=== PATIENT | female | born 1955 | race Caucasian/White ===

== ENCOUNTER 2022-12-19 09:59 | Outpatient (AMB) | payer MEDICARE, BC, SELFPAY ==
--- NOTE | 2022-12-19 10:03 | A.OFFVIS_ITS ---
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 Patient states I have dizzy spells all the time, I had long covid in January 2020 which came with severe dizziness, nausea. Allergies azithromycin [From Zithromax] Allergy (Unknown, Verified 12/19/22 10:10) Unknown fluvastatin Allergy (Unknown, Verified 12/19/22 10:10) mouth sore pravastatin Allergy (Unknown, Verified 12/19/22 10:10) myalgia simvastatin Allergy (Unknown, Verified 12/19/22 10:10) face swelling lisinopril Allergy (Verified 12/19/22 10:10) Rash naproxen [From Naprosyn] Allergy (Verified 12/19/22 10:10) angiodema Penicillins Allergy (Verified 12/19/22 10:10) Rash sulfamethazine Allergy (Verified 12/19/22 10:10) Rash Medication List - Last Reconciled 12/19/22 by SAMIR Elmore amitriptyline 10 - 20 mg (1 - 2 x 10 mg) PO BEDTIME 30 days clopidogrel 75 mg PO DAILY clopidogrel (Plavix) 75 mg PO DAILY escitalopram oxalate 20 mg PO DAILY levothyroxine 75 mcg PO DAILY lisinopril 5 mg PO DAILY meloxicam 15 mg PO DAILY metformin 500 mg PO DAILY rimegepant (Nurtec ODT) 75 mg PO ONCE PRN 30 days rosuvastatin 40 mg PO DAILY HPI HPI Comments History of Present Illness Details Right-handed 67-yr-old female presents for new pt evaluation of dizziness w/ ? of migraine. Pt reports she developed severe dizziness and headaches in Jan 2020. She thought this was a vestibular neuritis, as she had had 2 bouts of this prior. She r ecalls that in mid-Jan, she had the Covid-19 vaccine. As this progressed, she continued to have severe dizziness, headaches, brain fog, and fatigue. She stopped being able to work. She was referred to vestibular PT in Feb 2020, with [facility], which was helpful. She continued to have these symptoms, and saw neurology in July 2020- work-up was non-diagnostic. 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 Since, she has had Covid-19 x's 2 since (May 2021 and last in Sep 2022). In Sep, she had fatigue, increased dizziness, headache. She did take Paxlovid for both of these infections. Currently, she can have dizziness almost daily. The dizziness is like a head fullness and like she is spinning. She can lose her balance or veer to the left. The dizziness is a/w nausea. She is having an occasional headache- can be mild to be really bad, a/w photophobia/phonophobia. She has had 2 cervical and ON injections about a year ago which has helped. She also has a frequent whole head pressure/fullness discomfort also a/w photo/phonophobia. She is seeing PT again- doing dry needling, which is helping. Current acute medication use/interventions: None Previous acute medication use: Scop patch- was helpful but caused blurry vision. Meclizine- ineffective. Current preventative medication use: None Previous preventative medication use: None Non-pharmacological interventions: Rest History of headache disorder? Prior to Jan 2020, she had an occasional headache or a sinus headache (would have 2-3 sinus infections per week). The bouts of vestibular neuritis lasted only about 1-2 weeks and self-resolved. History of musculoskeletal disorders or injury? Has arthritis History of concussion/head injury? Has had a few self-limited concussions History of mood disorder? None History of sleep disorder? Does not sleep well. Has KASSIDY, not using PAP- has not tolerated PAP- causes increased nasal secretions. History of respiratory disease? None. Can have PNA induced wheezing History of CV disease? TIA 2020 and 2021 (unsure of exact dates). History of coagulopathy? None History of endocrine or metabolic disease? Diabetes- last HgA1C < 7%, hypothyroidism History of seizure? None History of GI disorder? Had diarrhea- using fiber usually helps Family planning? None Family history of dizziness, migraine or other headache disorder? None [facility] Medical History (Updated 12/20/22 @ 21:24 by SAMIR Elmore) Sleep difficulties HTN (hypertension) HLD (hyperlipidemia) Diabetes Hypothyroid Arthritis TIA (transient ischemic attack) Surgical History History of bladder surgery H/O arthroscopy of right knee History of rotator cuff surgery H/O tubal ligation History of carpal tunnel release History of knee replacement Family History Father Interstitial pulmonary fibrosis Mother Hypothyroid Fibrocystic breast Pulmonary embolism Daughter Cervical cancer Maternal Grandmother Dementia Asthma Myocardial infarct Social History Alcohol intake: current Patient Tobacco Use Status: Never used Tobacco Review of Systems Const Details: See scanned ROS form Physical Exam Vital Signs: Last Vital Signs Pulse 76 12/19/22 10:08 BP 118/82 12/19/22 10:08 Pulse Ox 97 12/19/22 10:08 Oxygen Delivery Method Room Air 12/19/22 10:08 BMI result Body Mass Index 36.7 Const Orientation/consciousness: patient oriented x3 HEENT Other: No palpable scalp tenderness. Head: Yes normocephalic Resp Effort & Inspection: normal respiratory effort and able to speak in complete sentences Neuro Other: EOM- elicits dizziness. General: patient oriented x3 Cranial nerves: Yes CN's II-XII intact bilaterally Cognition (Neuro): normal cognition Gait exam (Neuro): Normal gait present Motor exam (neuro): 5/5 motor strength present throughout Deep tendon reflexes (DTR's): Right triceps reflex intensity grade: 2+, Left triceps reflex intensity grade: 2+, Rt Biceps (C5, C6): 2+, Left biceps reflex intensity grade: 2+, Right brachioradialis reflex intensity grade: 2+, Left brachioradialis reflex intensity grade: 2+, Right patellar reflex intensity grade: 1+ and Left patellar reflex intensity grade: 1+ Coordination: [id number] test normal Pupils: Normal pupillary reactivity/response: bilateral Psych Appearance: grossly normal Mental Status: mental status grossly normal Speech and movement: Normal speech and movement present Affect: normal affect Attitude: cooperative Thought process: Normal thought process present Assessment & Plan Assessment & Plan (1) Dizziness: Code(s): R42 - Dizziness and giddiness (2) Migraine without aura: Comment: ? vestibular migraine Code(s): G43.009 - Migraine without aura, not intractable, without status migrainosus (3) COVID-19 long hauler: Code(s): U09.9 - Post COVID-19 condition, unspecified (4) Cognitive dysfunction: Code(s): F09 - Unspecified mental disorder due to known physiological condition (5) Sleep difficulties: Comment: h/o KASSIDY- did not tolerate PAP tx. Pt worked many night-shift for mx years. Code(s): G47.9 - Sleep disorder, unspecified Plan Discussed that pt's constellation of s/s of dizziness, headache a/w photo/phonophobia, cognitive dysfunction which developed after Covid-19 infection, do raise concern for having a migraine or vestibular migraine component. Will request previous head imaging. For overall management: Discussed importance of good self-care, including but not limited to maintaining a healthy diet, adequate fluid intake, adequate sleep, and engaging in regular physical activity. Track headaches and dizziness. Continue vestibular PT exercises Future considerations- f/u sleep study, referral to OT for cognitive tx. For acute headache treatment: Discussed importance of taking acute medications at the first sign of headache/dizziness. Trial Nurtec ODT 75mg qd prn. Reviewed potential adverse effects of gepants, including but not limited to fatigue, nausea, dry mouth, constipation. Previous acute migraine medication trials: None other Acute migraine medication contraindications: All triptans d/t HTN, HLD dx For headache prevention medication: Trial Amitriptyline 10-20mg qhs- may help dizziness and headache. Previous migraine prevention medication trials: None Migraine prevention medication contraindications: Would avoid topiramate d/t risk for worsening cognitive s/s. Pt to follow-up in 3 months or sooner prn. Medications: New rimegepant (Nurtec ODT) 1 tab qd prn migraine. Max 1 tab per day 75 mg PO ONCE 30 days PRN 16 tabs 3RF migraine headache amitriptyline 10 - 20 mg (1 - 2 x 10 mg) PO BEDTIME 30 days 60 tabs 3RF Coding Level of Care Code New Pt Level 4 (51875) Diagnoses Dizziness R42 Migraine without aura G43.009 COVID-19 long hauler U09.9 Cognitive dysfunction F09 Sleep difficulties G47.9
[2022-12-19 10:08] VITALS: BP 118/82; PULSE 76; O2SAT 97; BMI 36.7
== END 2022-12-19 11:23 | disposition home or self-care (01) ==
PROVIDERS: PCP Internal Medicine; Visit Provider Nurse Practitioner Family
DX: R42 Dizziness and giddiness (principal); G43.009 Migraine without aura, not intractable, without status migrainosus; U09.9 Post COVID-19 condition, unspecified; R41.89 Other symptoms and signs involving cognitive functions and awareness; G47.9 Sleep disorder, unspecified
CPT/HCPCS: 99204

== ENCOUNTER → 2022-12-19 09:59 | Outpatient (BNVA) | payer MEDICARE, BC, SELFPAY | PROVIDERS: PCP Internal Medicine; Visit Provider Nurse Practitioner Family | DX: U09.9 Post COVID-19 condition, unspecified (principal); R42 Dizziness and giddiness; G43.009 Migraine without aura, not intractable, without status migrainosus; F09 Unspecified mental disorder due to known physiological condition; G47.9 Sleep disorder, unspecified | CPT/HCPCS: 99202 ==

== ENCOUNTER 2023-04-11 10:53 | Outpatient (AMB) | payer MEDICARE, BC, SELFPAY ==
--- NOTE | 2023-04-11 10:55 | MHC.OFFVIS ---
Intake Vital Signs 04/11/23 10:56 Height 5 ft 3 in Weight 214 lb BMI 37.9 BP 124/82 Blood Pressure Location Rt brachial Position Sitting Pulse 70 Pulse Source Pulse Oximeter Pulse Oximetry (%) 96 Oxygen Delivery Method Room Air Intake Visit Reasons: follow up-Conf Intake Note: Patient presents for follow up . Allergies azithromycin [From Zithromax] Allergy (Unknown, Verified 04/11/23 11:18) Unknown fluvastatin Allergy (Unknown, Verified 04/11/23 11:18) mouth sore pravastatin Allergy (Unknown, Verified 04/11/23 11:18) myalgia simvastatin Allergy (Unknown, Verified 04/11/23 11:18) face swelling lisinopril Allergy (Verified 04/11/23 11:18) Rash naproxen [From Naprosyn] Allergy (Verified 04/11/23 11:18) angiodema Penicillins Allergy (Verified 04/11/23 11:18) Rash sulfamethazine Allergy (Verified 04/11/23 11:18) Rash HPI HPI Comments History of Present Illness Details 67-yr-old female presents for f/u visit. Pt denies any significant interval medical changes. She has recently been caring for her 87 yo mother who recently had a fall and subdural bleed. Her mother does not usually live w/ her, and so has had some increased stress and mental exhaustion. Has had some headaches. Tried Nurtec 3-4 x's. The 1st time, it did not work initially. Since, it has been effective for a stronger migraine headache. Has has 3-4 severe migraine attacks since the last visit. She still has bouts of dizziness, brain fog a/w headache, photophobia, mild nausea. She has not tried Nurtec for these episodes. She still has brain fog, has difficulty concentrating, She has tried the Amitriptyline 10mg prn. It helps her to sleep. However, if she does not take it early enough, she will have have difficulty waking up until 9-10am. Usually goes to sleep by 2-3am and can sleep to 10am, at times may fall asleep sitting up downstairs and wakes up to go to the bathroom, and goes upstairs to bed. Baseline dizziness characteristics: The dizziness is like a head fullness and like she is spinning a/w nausea. She can lose her balance or veer to the left. Baseline headache characteristics: Mild-Severe, a/w photophobia/phonophobia. Also has a frequent whole head pressure/fullness discomfort also a/w photo/phonophobia. [facility]LY [facility] Medical History (Updated 12/20/22 @ 21:24 by SAMIR Elmore) Sleep difficulties HTN (hypertension) HLD (hyperlipidemia) Diabetes Hypothyroid Arthritis TIA (transient ischemic attack) Surgical History History of bladder surgery H/O arthroscopy of right knee History of rotator cuff surgery H/O tubal ligation History of carpal tunnel release History of knee replacement Family History Father Interstitial pulmonary fibrosis Mother Hypothyroid Fibrocystic breast Pulmonary embolism Daughter Cervical cancer Maternal Grandmother Dementia Asthma Myocardial infarct Social History Alcohol intake: current Patient Tobacco Use Status: Never used Tobacco Physical Exam Vital Signs: Last Vital Signs Pulse 70 04/11/23 10:56 BP 124/82 04/11/23 10:56 Pulse Ox 96 04/11/23 10:56 Oxygen Delivery Method Room Air 04/11/23 10:56 BMI result Body Mass Index 37.9 Const General: cooperative and no acute distress Orientation/consciousness: patient oriented x3 Resp Effort & Inspection: normal respiratory effort and able to speak in complete sentences Neuro General: patient oriented x3 Cranial nerves: Yes CN's II-XII intact bilaterally Cognition (Neuro): normal cognition Psych Appearance: grossly normal Mental Status: mental status grossly normal Speech and movement: Normal speech and movement present Affect: normal affect Attitude: cooperative Results Reviewed Results Reviewed: Labs 02/05/23 10:26 cholesterol 177 triglycerides 135 HDL cholesterol 75 LDL cholesterol 75 non HDL cholesterol 102 03/13/2023, VL Carotid Duplex Scan Bilat Summary: Right Side: 1-49% stenosis in the Internal Carotid Artery. Antegrade flow in the Vertebral Artery. Multiphasic flow is seen in the Subclavian Artery. Left Side: 1-49% stenosis in the Internal Carotid Artery. The velocities are slightly higher than previously. Antegrade flow in the Vertebral Artery. Multiphasic flow is seen in the Subclavian Artery. Comparison is made to the previous ultrasound study dated 03/02/22. 08/02/21, ?MRI Brain W/O Contrast COMPARISON: MRI brain, 02/24/2020. FINDINGS: BRAIN and EXTRA-AXIAL SPACES: On diffusion weighted imaging, there are no regions of restricted diffusion to indicate an acute or subacute infarct. There is no evidence of intracranial hemorrhage on susceptibility sensitive sequence. There is no mass effect, midline shift, or effacement of the basal cisterns. Major intracranial flow voids are present. Mild scattered foci of T2 prolongation are seen in the periventricular, deep, and subcortical white matter. Ventricles, cisterns, and sulci are normal in size and configuration, without hydrocephalus. No abnormal extra-axial fluid collections are seen. Meningeal surfaces are normal. The midline structures, including sella, corpus callosum, and craniocervical junction, are unremarkable. EXTRACRANIAL SOFT TISSUES: Orbits are unremarkable. Trace right mastoid effusion is seen. Nasopharyngeal contour and symmetric. Paranasal sinuses, orbits, and remaining extracranial soft tissues are unremarkable. BONES: Marrow signal is preserved. IMPRESSION: 1. No acute/subacute infarct, mass, hemorrhage, or other acute intracranial abnormality. 2. Mild T2/FLAIR hyperintense foci in the white matter, nonspecific but most likely reflecting chronic small vessel disease. 06/13/20, CT Angio Head, CT Angio Neck FINDINGS: CTA OF THE NECK: Arch: There is a three vessel aortic arch. There is mild atherosclerotic plaque of the aortic arch, but origins of the supra aortic vessels are patent. Right carotid system: Proximal common carotid artery is mildly blurred by motion, but is patent. Remainder of the common carotid and cervical internal carotid arteries are patent. There is calcified atherosclerotic plaque at the carotid bifurcation, resulting in mild proximal ICA stenosis (10%) by NASCET criteria. There is no dissection or aneurysm. Left carotid system: The common carotid and cervical internal carotid arteries are patent. There is partially calcified atherosclerotic plaque at the carotid bifurcation, resulting in moderate proximal ICA stenosis (50%) by NASCET criteria, similar to prior. There is no dissection or aneurysm. There is a [id number] vertebral artery system. Right vertebral: Origin is blurred by motion but patent. No significant stenosis. No evidence of dissection or aneurysm. Left vertebral: Origin is blurred by motion but patent. No significant stenosis. No evidence of dissection or aneurysm. Other: Soft tissues and bones: No evidence of lymphadenopathy or mass. The thyroid is unremarkable. Visualized lungs are blurred by motion artifact, with associated airspace opacities which may reflect atelectasis on this expiratory phase study. Multilevel degenerative changes of the spine are noted, without acute osseous abnormality. CTA OF THE HEAD: Anterior circulation: Bilateral intracranial ICAs demonstrate atherosclerotic calcification, without stenosis. Bilateral ANDRÉS and MCA branches are patent. There is no significant stenosis, proximal cutoff, aneurysm, or vascular malformation. Posterior circulation: Bilateral intracranial vertebral arteries demonstrate atherosclerotic calcification, with minimal narrowing. The basilar artery, and bilateral PICA, SCA, and OUTPATIENT PHYSICAL THERAPIST ASSISTANT branches are patent. The SCAs are duplicated on each side. There is no significant stenosis, proximal cutoff, aneurysm, or vascular malformation. Veins: Major dural venous sinuses are patent. Other: Soft tissues and bones: No midline shift or effacement of the basal cisterns. No space-occupying hemorrhage. No territorial loss of julien-white matter differentiation. Orbits are unremarkable. No significant opacification in the paranasal sinuses or mastoid air cells. IMPRESSION: 1. No proximal occlusion or other acute abnormality in the major arteries of the head and neck. 2. Similar appearance of the moderate left proximal cervical ICA stenosis (50% by NASCET criteria). 3. Additional mild stenoses as above, similar to prior. 03/23/20, MRI Cervical Spine W/O Contrast COMPARISON: Cervical spine MRI, 10/01/2018. FINDINGS: ALIGNMENT, VERTEBRAE, MARROW, AND DISCS: Alignment is stable with minimal retrolisthesis of C4 on C5. Vertebral body heights are preserved. There is moderate disc space narrowing at C4-5 and C5-6, similar to prior. Bone marrow signal is normal. Prior edema in the left C6-C7 facets has resolved. POSTERIOR FOSSA AND CORD: The visualized posterior fossa and cervicomedullary junction are normal. The cervical cord is normal in caliber and signal throughout. PARASPINAL TISSUES: Surrounding cervical soft tissues are normal. Flow voids are preserved in the dominant cervical vessels. DETAILED FINDINGS BY LEVEL: C2-C3: There is no significant disc bulge or canal stenosis. There is mild left neural foraminal stenosis due to facet arthropathy. The right neural foramen is patent. C3-C4: There is a tiny central protrusion without significant canal stenosis. The neural foramen are patent. C4-C5: There is broad-based disc osteophyte and uncovertebral spurring as well as posterior ligamentous buckling. This results in moderate canal stenosis with effacement of the surrounding CSF, though there is no cord compression. There is severe bilateral neural foraminal stenosis, unchanged. C5-C6: There is broad-based disc osteophyte causing mild canal stenosis without contact of the cord. Uncovertebral spurring results in severe right and mild to moderate left neural foraminal stenosis. C6-C7: There is no canal stenosis. There is facet spurring, greater on the left, resulting in mild to moderate left neural foraminal stenosis. C7-T1: There is no significant canal or neural foraminal stenosis. IMPRESSION: 1. Previously noted left facet edema at C6-7 has resolved. 2. Otherwise, multilevel degenerative changes are stable as described, most pronounced at C4-5 where there is moderate canal stenosis. Please see above. Assessment & Plan Assessment & Plan (1) Dizziness: Code(s): R42 - Dizziness and giddiness (2) Migraine without aura: Comment: ? vestibular migraine Code(s): G43.009 - Migraine without aura, not intractable, without status migrainosus (3) Cognitive dysfunction: Code(s): F09 - Unspecified mental disorder due to known physiological condition (4) Sleep difficulties: Comment: h/o KASSIDY- did not tolerate PAP tx. Pt worked many night-shift for mx years. Code(s): G47.9 - Sleep disorder, unspecified (5) COVID-19 long hauler: Code(s): U09.9 - Post COVID-19 condition, unspecified Plan Reviwed previous and recent head/neck imaging, results notable for: 03/13/2023, VL Carotid Duplex Scan Mega, Right Side: 1-49% stenosis in ICA. Antegrade flow in the Vertebral Artery. Multiphasic flow is seen in the Subclavian Artery. Left Side: 1-49% stenosis in ICA. The velocities are slightly higher than previously. Antegrade flow in the Vertebral Artery. Multiphasic flow is seen in the Subclavian Artery. Brain MRI w/o, 2021- Mild nonspecifc T2/FLAIR hyperintense foci in the white matter c/w chronic small vessel disease. CT Angio Head and Neck, 2020: Head: Bilateral intracranial ICAs demonstrate atherosclerotic calcification, without stenosis. Bilateral intracranial vertebral arteries demonstrate atherosclerotic calcification, with minimal narrowing. Neck: mild atherosclerotic plaque of the aortic arch; Right calcified atherosclerotic plaque at the carotid bifurcation, resulting in mild proximal ICA stenosis (10%) by NASCET criteria. Left partially calcified atherosclerotic plaque at the carotid bifurcation, resulting in moderate proximal ICA stenosis (50%) by NASCET criteria. Qhevjz-[id number] vertebral artery system C-spine MRI w/o, 2020: multilevel degenerative changes are stable as described, most pronounced at C4-5 where there is moderate canal stenosis. Reviewed Dr Craven's recent note, vascular, plan to continue conservative tx of Left carotid artery stenosis. Continue ASA, Clopidogrel, rosuvastatin. BP is normotensive. Lipids- WNL. ? For overall management: Continue to try to optimize good self-care, including but not limited to maintaining a healthy diet, adequate fluid intake, adequate sleep, and engaging in regular physical activity. Track headaches and dizziness. Continue vestibular PT exercises Future considerations- f/u sleep study, referral to OT for cognitive tx. ? For acute headache treatment: Discussed importance of taking acute medications at the first sign of headache/dizziness. Continue Nurtec ODT 75mg qd prn, may try for dizziness/brain/fog/headache attacks. Reviewed potential adverse effects of gepants, including but not limited to fatigue, nausea, dry mouth, constipation. Previous acute migraine medication trials: None other Acute migraine medication contraindications: All triptans d/t HTN, HLD dx ? For headache prevention medication: Continue Amitriptyline 10-20mg qhs (at least 8-9 hours beofre need to arise in the am)- may help dizziness and headache. Previous migraine prevention medication trials: None Migraine prevention medication contraindications: Would avoid topiramate d/t risk for worsening cognitive s/s. ? Pt to follow-up in 3 months or sooner prn. Coding Level of Care Code Est Pt Level 4 (81762) Diagnoses Dizziness R42 Migraine without aura G43.009 Cognitive dysfunction F09 Sleep difficulties G47.9 COVID-19 long hauler U09.9
[2023-04-11 10:56] VITALS: BP 124/82; PULSE 70; O2SAT 96; BMI 37.9
== END 2023-04-11 12:13 | disposition home or self-care (01) ==
PROVIDERS: PCP Internal Medicine; Visit Provider Nurse Practitioner Family
DX: R42 Dizziness and giddiness (principal); G43.009 Migraine without aura, not intractable, without status migrainosus; R41.89 Other symptoms and signs involving cognitive functions and awareness; G47.9 Sleep disorder, unspecified; U09.9 Post COVID-19 condition, unspecified
CPT/HCPCS: 99214

== ENCOUNTER → 2023-04-11 10:53 | Outpatient (BNVA) | payer MEDICARE, BC, SELFPAY | PROVIDERS: PCP Internal Medicine; Visit Provider Nurse Practitioner Family | DX: G43.009 Migraine without aura, not intractable, without status migrainosus (principal); R42 Dizziness and giddiness; F09 Unspecified mental disorder due to known physiological condition; G47.9 Sleep disorder, unspecified; U09.9 Post COVID-19 condition, unspecified | CPT/HCPCS: 99212 ==

== ENCOUNTER 2023-12-27 09:00 | Outpatient (AMB) | payer MEDICARE, BC, SELFPAY ==
[2023-12-27 09:02] VITALS: BP 148/90; BMI 38.1
--- NOTE | 2023-12-27 09:02 | A.OFFVIS_ITS ---
Vital Signs 12/27/23 09:02 Height 5 ft 3 in Weight 215 lb BMI 38.1 BP 148/90 H Blood Pressure Location Rt brachial Position Sitting Intake Visit Reasons: Follow up Intake Note: Patient presents for follow up Allergies azithromycin [From Zithromax] Allergy (Unknown, Verified 12/27/23 09:04) Unknown fluvastatin Allergy (Unknown, Verified 12/27/23 09:04) mouth sore pravastatin Allergy (Unknown, Verified 12/27/23 09:04) myalgia simvastatin Allergy (Unknown, Verified 12/27/23 09:04) face swelling lisinopril Allergy (Verified 12/27/23 09:04) Rash naproxen [From Naprosyn] Allergy (Verified 12/27/23 09:04) angiodema Penicillins Allergy (Verified 12/27/23 09:04) Rash sulfamethazine Allergy (Verified 12/27/23 09:04) Rash Medication List - Last Reconciled 01/07/24 by SAMIR Elmore amitriptyline 10 - 20 mg (1 - 2 x 10 mg) PO BEDTIME 30 days clopidogrel 75 mg PO DAILY clopidogrel (Plavix) 75 mg PO DAILY escitalopram oxalate 20 mg PO DAILY levothyroxine 75 mcg PO DAILY lisinopril 5 mg PO DAILY meloxicam 15 mg PO DAILY metformin 500 mg PO DAILY rimegepant (Nurtec ODT) 75 mg PO ONCE PRN 30 days rosuvastatin 40 mg PO DAILY HPI Comments Details: 68 year old female follow up for Migraines, She is just moved and is under a lot of stress, her 87 yo mother is wanting to come visit this weekend. She reports forgetting things and why she is here. She continues to have migraines but less frequency and intensities, She has a h/o sleep apnea, and Vestibular Neuritis. 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 Tried Nurtec, liked it as it was helping but unable to continue d/t cost. Migraines, 1 x week with photophobia, intermittent dizziness, eyes bother her, no vomiting but nausea. She continues to have tension like headaches x1 per week, and states are different from Migraines. She goes into a dark room, sits down they last about 20 min. Short term memory is worse, always feeling exhausted, mood is irritable today. Sleeps at 2am to 3am - gets up at 11am and that is her normal schedule. Labor day weekend Saturday, she had a headache and visual changes- saw fractured garay like obstructed vision and it lasted one hour. She went to ER, had stroke Protocol work up- ? normal. Discontinued her Lisinopril d/t hyperkalemia. She will follow up with PCP, her BP is 148/90 today. [facility] Medical History Sleep difficulties HTN (hypertension) HLD (hyperlipidemia) Diabetes Hypothyroid Arthritis TIA (transient ischemic attack) Surgical History History of bladder surgery H/O arthroscopy of right knee History of rotator cuff surgery H/O tubal ligation History of carpal tunnel release History of knee replacement Family History Father Interstitial pulmonary fibrosis Mother Hypothyroid Fibrocystic breast Pulmonary embolism Daughter Cervical cancer Maternal Grandmother Dementia Asthma Myocardial infarct Social History Alcohol intake: current Patient Tobacco Use Status: Never used Tobacco Review of Systems Const Reports as per HPI Physical Exam Vital Signs: Last Vital Signs BP 148/90 H 12/27/23 09:02 BMI result Body Mass Index 38.1 Const General: cooperative, comfortable and no acute distress Nutritional Appearance: overweight Orientation/consciousness: patient oriented x3 Limitations: no limitations HEENT Head: Yes normal to inspection Eyes General: appearance normal, both eyes and all related structures Visual Castillo: normal visual castillo by confrontation Pupils: Equal, round and reactive pupils present and Pupils normal by confrontation Resp Effort & Inspection: normal respiratory effort and able to speak in complete sentences Neuro General: patient oriented x3 Cranial nerves: Yes Equal, round and reactive pupils present Motor exam (neuro): 5/5 motor strength present throughout Assessment & Plan Assessment & Plan (1) Migraine without aura: Comment: ? vestibular migraine Code(s): G43.009 - Migraine without aura, not intractable, without status migrainosus Category: Medical Qualifiers: Intractability: intractable (2) Dizziness: Code(s): R42 - Dizziness and giddiness Category: Medical (3) Cognitive dysfunction: Code(s): F09 - Unspecified mental disorder due to known physiological condition Category: Medical (4) Sleep difficulties: Comment: h/o KASSIDY- did not tolerate PAP tx. Pt worked many night-shift for mx years. Code(s): G47.9 - Sleep disorder, unspecified Category: Medical (5) COVID-19 long hauler: Code(s): U09.9 - Post COVID-19 condition, unspecified Category: Medical Plan I was not able to find recent ER reports in [facility] portals. Will request. Previous and recent head/neck imaging, results notable for: 03/13/2023, VL Carotid Duplex Scan Mega, Right Side: 1-49% stenosis in ICA. Antegrade flow in the Vertebral Artery. Multiphasic flow is seen in the Subclavian Artery. Left Side: 1-49% stenosis in ICA. The velocities are slightly higher than previously. Antegrade flow in the Vertebral Artery. Multiphasic flow is seen in the Subclavian Artery. Brain MRI w/o, 2021- Mild nonspecifc T2/FLAIR hyperintense foci in the white matter c/w chronic small vessel disease. CT Angio Head and Neck, 2020: Head: Bilateral intracranial ICAs demonstrate atherosclerotic calcification, without stenosis. Bilateral intracranial vertebral arteries demonstrate atherosclerotic calcification, with minimal narrowing. Neck: mild atherosclerotic plaque of the aortic arch; Right calcified atherosclerotic plaque at the carotid bifurcation, resulting in mild proximal ICA stenosis (10%) by NASCET criteria. Left partially calcified atherosclerotic plaque at the carotid bifurcation, resulting in moderate proximal ICA stenosis (50%) by NASCET criteria. [id number]-swwp-[id number] vertebral artery system C-spine MRI w/o, 2020: multilevel degenerative changes are stable as described, most pronounced at C4-5 where there is moderate canal stenosis. Mar 2023, Dr Craven's recent note, vascular, plan to continue conservative tx of Left carotid artery stenosis. Continue ASA, Clopidogrel, rosuvastatin. Lipids- WNL. BP is elevate dtoday at 148/90. Per pt lisinopril d/c'd d/t hyperkalemia. Will start pt on Propranolol Er 60mg qhs for BP and migraine. ? For overall management: Continue to try to optimize good self-care, including but not limited to maintaining a healthy diet, adequate fluid intake, adequate sleep, and engaging in regular physical activity. Track headaches and dizziness. Continue vestibular PT exercises Future considerations- f/u sleep study, referral to OT for cognitive tx. ? For acute headache treatment: Discussed importance of taking acute medications at the first sign of headache/dizziness. Trial Fioricet 1cap q 4 hrs prn tension type headache, Max 2 doses per day. May hold Nurtec ODT 75mg qd d/t cost. Reviewed potential adverse effects of gepants, including but not limited to fatigue, nausea, dry mouth, constipation. Previous acute migraine medication trials: Nurtec- effective but cost-probitive. Acute migraine medication contraindications: All triptans d/t HTN, HLD dx. NSAIDs d/t concomittent Plavix tx. ? For headache prevention medication: Start Propranolol ER 60mg qhs- may help BP as well. Continue Amitriptyline 10-20mg qhs (at least 8-9 hours before need to arise in the am)- may help dizziness and headache. Previous migraine prevention medication trials: None Migraine prevention medication contraindications: Would avoid topiramate d/t risk for worsening cognitive s/s. ? Pt to follow-up in 3 months or sooner prn. Pt seen by Adeel LUZ in coordination w/ myself KIMBERLEY Elmore, I agree with the above documentation and plan. Coding Level of Care Code Est Pt Level 4 (39080) Diagnoses Migraine without aura G43.009 Intractability: intractable Dizziness R42 Cognitive dysfunction F09 Sleep difficulties G47.9 COVID-19 long hauler U09.9
== END 2023-12-27 10:16 | disposition home or self-care (01) ==
LOC: HO.HSMS 09:01
PROVIDERS: PCP Internal Medicine; Visit Provider Nurse Practitioner Family
DX: G43.009 Migraine without aura, not intractable, without status migrainosus (principal); R42 Dizziness and giddiness; R41.89 Other symptoms and signs involving cognitive functions and awareness; G47.9 Sleep disorder, unspecified; U09.9 Post COVID-19 condition, unspecified
CPT/HCPCS: 99214

== ENCOUNTER → 2023-12-27 09:00 | Outpatient (BNVA) | payer MEDICARE, BC, SELFPAY | PROVIDERS: PCP Internal Medicine; Visit Provider Nurse Practitioner Family | DX: G43.009 Migraine without aura, not intractable, without status migrainosus (principal); G47.33 Obstructive sleep apnea (adult) (pediatric); R42 Dizziness and giddiness; F09 Unspecified mental disorder due to known physiological condition; U09.9 Post COVID-19 condition, unspecified | CPT/HCPCS: 99212 ==

== ENCOUNTER 2024-06-24 10:35 | Outpatient (AMB) | payer MEDICARE, BC, SELFPAY ==
--- NOTE | 2024-06-24 10:43 | MHC.OFFVIS ---
Vital Signs 06/24/24 10:45 Height 5 ft 3 in Weight 219 lb BMI 38.8 BP 122/84 Pulse 78 Pulse Source Pulse Oximeter Pulse Oximetry (%) 97 Oxygen Delivery Method Room Air Intake Visit Reasons: 6m follow up Intake Note: Patient presents follow up for headaches and dizziness. Business Administration Teacher Required: No Accompanied by: Self / Same As Patient Allergies azithromycin [From Zithromax] Allergy (Unknown, Verified 06/24/24 10:45) Unknown fluvastatin Allergy (Unknown, Verified 06/24/24 10:45) mouth sore pravastatin Allergy (Unknown, Verified 06/24/24 10:45) myalgia simvastatin Allergy (Unknown, Verified 06/24/24 10:45) face swelling lisinopril Allergy (Verified 06/24/24 10:45) Rash naproxen [From Naprosyn] Allergy (Verified 06/24/24 10:45) angiodema Penicillins Allergy (Verified 06/24/24 10:45) Rash sulfamethazine Allergy (Verified 06/24/24 10:45) Rash Medication List - Last Reconciled 06/24/24 by SAMIR Elmore amitriptyline 10 - 20 mg (1 - 2 x 10 mg) PO BEDTIME 30 days [id number] 50-325-40 mg 1 cap PO Q4H PRN 30 days clopidogrel 75 mg PO DAILY clopidogrel (Plavix) 75 mg PO DAILY escitalopram oxalate 20 mg PO DAILY levothyroxine 75 mcg PO DAILY lisinopril 5 mg PO DAILY meloxicam 15 mg PO DAILY metformin 500 mg PO BIDWMEAL propranolol ER 60 mg PO BEDTIME 30 days rimegepant (Nurtec ODT) 75 mg PO ONCE PRN 30 days rosuvastatin 40 mg PO DAILY HPI Comments Details: 68 year old female follow up for Migraines, dizziness. She deneis any significant interval medical changes. She states her migraine and dizziness attacks have increased, which can last all day. The dizziness attacks do affect her balance. She tried propranolol for a couple of days- caused lightheadedness so she stopped it. She resumed vestibular tx, which is helping- Christal Morales PT at [facility]. She notes in the past she has had occipital injections by pain management at pain management in [place] which was helpful. She is having an almost daily migraine attack- sometimes mild and sometimes more severe. Migraine is a/w with bifrontal, eye discomfort, photophobia, phonophobia, intermittent dizziness, eyes bother her, no vomiting but nausea. Continues to have lapses in short term memory and word finding difficulties. Sleeps is stable- usual sleep cycle 2-3am - 11am. 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 [facility] Medical History Sleep difficulties HTN (hypertension) HLD (hyperlipidemia) Diabetes Hypothyroid Arthritis TIA (transient ischemic attack) Surgical History History of bladder surgery H/O arthroscopy of right knee History of rotator cuff surgery H/O tubal ligation History of carpal tunnel release History of knee replacement Family History Father Interstitial pulmonary fibrosis Mother Hypothyroid Fibrocystic breast Pulmonary embolism Daughter Cervical cancer Maternal Grandmother Dementia Asthma Myocardial infarct Social History Alcohol intake: current Patient Tobacco Use Status: Never used Tobacco Physical Exam Vital Signs: Last Vital Signs Pulse 78 06/24/24 10:45 BP 122/84 06/24/24 10:45 Pulse Ox 97 06/24/24 10:45 Oxygen Delivery Method Room Air 06/24/24 10:45 BMI result Body Mass Index 38.8 Const General: cooperative, comfortable and no acute distress Nutritional Appearance: overweight Orientation/consciousness: patient oriented x3 Limitations: no limitations HEENT Head: Yes normal to inspection Eyes General: appearance normal, both eyes and all related structures Pupils: Equal, round and reactive pupils present and Pupils normal by confrontation Resp Effort & Inspection: normal respiratory effort and able to speak in complete sentences Neuro Other: Mild forward head and shoulder posture General: patient oriented x3 Cranial nerves: Yes Equal, round and reactive pupils present Motor exam (neuro): 5/5 motor strength present throughout Assessment & Plan Assessment & Plan (1) Migraine without aura: Comment: ? vestibular migraine Code(s): G43.009 - Migraine without aura, not intractable, without status migrainosus Category: Medical Qualifiers: Intractability: not intractable Status migrainosus presence: without status migrainosus Qualified Code(s): G43.009 - Migraine without aura, not intractable, without status migrainosus (2) Dizziness: Code(s): R42 - Dizziness and giddiness Category: Medical (3) Cognitive dysfunction: Code(s): F09 - Unspecified mental disorder due to known physiological condition Category: Medical (4) Sleep difficulties: Comment: h/o KASSIDY- did not tolerate PAP tx. Pt worked many night-shift for mx years. Code(s): G47.9 - Sleep disorder, unspecified Category: Medical (5) COVID-19 long hauler: Code(s): U09.9 - Post COVID-19 condition, unspecified Category: Medical Plan For history of episode of acute left eye visual change with history of TIA x2: BP is normal today. Patient has discontinued propranolol due to lightheadedness. Patient is no longer taking lisinopril. Continue Clopidogrel, rosuvastatin. For overall management: Continue to try to optimize good self-care, including but not limited to maintaining a healthy diet, adequate fluid intake, adequate sleep, and engaging in regular physical activity. Track headaches and dizziness. Continue vestibular PT exercises Future considerations- f/u sleep study, referral to OT for cognitive tx. ? For acute headache treatment: Discussed importance of taking acute medications at the first sign of headache/dizziness. Fioricet 1cap q 4 hrs prn tension type headache, Max 2 doses per day. May continue to hold hold Nurtec ODT 75mg qd d/t cost. Reviewed potential adverse effects of gepants, including but not limited to fatigue, nausea, dry mouth, constipation. Previous acute migraine medication trials: Nurtec- effective but cost-probitive. Acute migraine medication contraindications: All triptans d/t HTN, HLD dx. NSAIDs d/t concomittent Plavix tx. ? For headache prevention medication: Discussed trying a CGRP MaB antagonist- however this also looks to be unaffordable with a co-pay of greater than 500 dollars per dose. Discussed Botox therapy, as has at times this can be more affordable than typical prescription medication. Also consider trial of Namenda, which could help her post COVID cognitive difficulties and migraine. However, patient would like to follow-up with [facility]-to retrial occipital region injection as that was previously helpful. Discontinue Propranolol ER 60mg qhs- may help BP as well. Continue Amitriptyline 20mg qhs (at least 8-9 hours before need to arise in the am)- may help dizziness and headache. Previous migraine prevention medication trials: Propranolol caused lightheadedness. Migraine prevention medication contraindications: Would avoid topiramate d/t risk for worsening cognitive s/s. Encourage patient to consider applying for [place] Medicaid to see if she would qualify, as if approve this may help her with her medication co-pay costs. ? Pt to follow-up in 6 months or sooner prn. Medications: Changed From amitriptyline 10 - 20 mg (1 - 2 x 10 mg) PO BEDTIME 30 days 60 tabs 3RF To amitriptyline 20 mg (2 x 10 mg) PO BEDTIME 90 days 180 tabs 1RF Discontinued rimegepant (Nurtec ODT) 1 tab qd prn migraine. Max 1 tab per day Discontinued Reason: Patient no longer taking 75 mg PO ONCE 30 days PRN 16 tabs 6RF migraine headache propranolol ER Discontinued Reason: Patient no longer taking 60 mg PO BEDTIME 30 days 30 caps 3RF Coding Level of Care Code Est Pt Level 4 (02242) Diagnoses Migraine without aura and without status migrainosus, not intractable G43.009 Intractability: not intractable Status migrainosus presence: without status migrainosus Dizziness R42 Cognitive dysfunction F09 Sleep difficulties G47.9 COVID-19 long hauler U09.9
[2024-06-24 10:45] VITALS: BP 122/84; PULSE 78; O2SAT 97; BMI 38.8
--- OUTSIDE RECORDS SUMMARY | 2024-06-24 11:56 | XMS_ITS | Encounter Summary ---
Author Organization [facility] Address [address] [address] Phone Care Team Providers Care Sail Finisher Hand Name Role Phone Anjel Leyva MD Primary Care Provider [phone] Encounter Details Date Type Department Care Team (Late st Contact Info) Description 2022 Documentation Only [facility] [address] [place] [address] Anjel Leyva MD [address] Social History Tobacco Use Types Packs/Day Years Used Date Smoking Tobacco: Never Assessed Comments Unknown Sex and Gender Information Value Date Recorded Sex Assigned at Not on file Legal Sex Female 3:28 PM EDT Gender Identity Not on file Sexual Orientation Not on file documented as of this encounter Plan of Treatment Upcoming Encounters Date Type Department Care Team (Late st Contact Info) Description 08/19/2024 1:45 PM EDT Office Visit [facility] [address] [place] [address] Rasheed Winston MD [address] [place] [address] [place] [address] documented as of this encounter Visit Diagnoses Not on filedocumented in this encounter Care Teams Sail Finisher Hand Relationship Specialty Start Date End Date Anjel Leyva MD [address] PCP - General Internal Medicine 11/13/22 documented as of this encounter
--- OUTSIDE RECORDS SUMMARY | 2024-06-24 11:56 | XMS_ITS | Clinical Summary ---
Author Organization [facility], Address [address] [place] [address] [place] [address] Phone Care Team Providers Care Mechanical Lead Name Role Phone Anjel Leyva MD Primary Care Provider [phone] Allergies Active Allergy Reactions Criticality Noted Date Comments Hydrochlorothiazide Rash Low 09/25/2022 Naproxen Swelling,Other (see comments) 06/30/2002 swelling Allergy entered as NAPROSYN Penicillins Other (see comments),Rash Low 06/30/2002 unkown rx to amoxicillin Pravastatin Rash Low 02/13/2023 Sulfadiazine Rash Low 02/13/2023 Tretinoin Swelling 02/13/2023 Medications amitriptyline (ELAVIL) 10 MG tablet TAKE 1 TO 2 TABLETS BY MOUTH EVERY DAY AT BEDTIME 3 Active clopidogrel (PLAVIX) 75 MG tablet TAKE 1 TABLET BY MOUTH EVERY DAY STOP ASPIRIN AFTER 7 DAYS 3 Active escitalopram (LEXAPRO) 20 MG tablet Take 20 mg by mouth 1 (one) time each day 3 Active levothyroxine (SYNTHROID, LEVOTHROID) 75 MCG tablet Take 75 mcg by mouth 1 (one) time each day 3 Active metFORMIN (GLUCOPHAGE) 500 MG tablet Take 1,000 mg by mouth in the morning and 1,000 mg in the evening. 3 Active mometasone (ELOCON) 0.1 % cream APPLY TOPICALLY TO AFFECTED AREAS ON LEGS TWICE A DAY FOR TWO WEEKS, BREAK 1 WEEK AND REPEAT NEEDED 3 Active Nurtec 75 MG tablet dispersible TAKE 1 TABLET BY MOUTH EVERY DAY NEEDED FOR MIGRAINE HEADACHE (MAX 1 TABLET/DAY) 3 Active Active Problems Problem Noted Date Diagnosed Date Hypercalcemia 08/21/2023 Diabetes mellitus 02/13/2023 02/13/2023 Hypertensive disorder 02/13/2023 02/13/2023 Hyperkalemia 02/13/2023 Chronic kidney disease, stage 2 (mild) 3 Resolved Problems Problem Noted Date Diagnosed Date Resolved Date Stage 3a chronic kidney disease 02/13/2023 02/13/2023 Social History Tobacco Use Types Packs/Day Years Used Date Smoking Tobacco: Never Assessed Comments Unknown Sex and Gender Information Value Date Recorded Sex Assigned at Not on file Legal Sex Female 3:28 PM EDT Gender Identity Not on file Sexual Orientation Not on file Last Filed Vital Signs Vital Sign Reading Time Taken Comments Blood Pressure 128/82 08/21/2023 3:55 PM EDT Pulse - - Temperature - - Respiratory Rate - - Oxygen Saturation - - Inhaled Oxygen Concentration - - Weight 95.7 kg (211 lb) 02/13/2023 1:35 PM EST Height - - Body Mass Index - - Plan of Treatment Upcoming Encounters Date Type Department Care Team (Late st Contact Info) Description 08/19/2024 1:45 PM EDT Office Visit [facility] [address] [place] [id number] Rasheed Winston MD [address] [place] [id number] Health Maintenance Due Date Last Done Comments Breast Cancer Screening 1955 Colorectal Cancer Screening: Annual FOBT 2005 Colorectal Cancer Screening: Colonoscopy 2005 Colorectal Cancer Screening: Sigmoidoscopy 2005 Pneumococcal Vaccine: 50+ Ye ars (2 of 2 - PPSV23) 04/04/2022 02/07/2022 Diabetes: Hemoglobin A1C 11/26/2022 Diabetes: Ophthalmology Exam 11/26/2022 Diabetes: Pedal Pulse Checked 11/26/2022 Diabetes: Sensory Foot Exam 11/26/2022 Diabetes: Visual Foot Exam 11/26/2022 Influenza Vaccine (Season Ended) 2024 Hepatitis B Vaccine Aged Out No longe r eligible based on patient's age to complete this topic Insurance Medicare [facility] Care Teams Mechanical Lead Relationship Specialty Start Date End Date Ajnel Leyva MD [facility] [address] [place] [address] PCP - General Internal Medicine 11/13/22
== END 2024-06-24 11:40 | disposition home or self-care (01) ==
LOC: HO.HSMS 10:35
PROVIDERS: PCP Internal Medicine; Visit Provider Nurse Practitioner Family
DX: G43.009 Migraine without aura, not intractable, without status migrainosus (principal); R42 Dizziness and giddiness; R41.89 Other symptoms and signs involving cognitive functions and awareness; G47.9 Sleep disorder, unspecified; U09.9 Post COVID-19 condition, unspecified
CPT/HCPCS: 99214

== ENCOUNTER → 2024-06-24 10:35 | Outpatient (BNVA) | payer MEDICARE, BC, SELFPAY | PROVIDERS: PCP Internal Medicine; Visit Provider Nurse Practitioner Family | DX: G43.009 Migraine without aura, not intractable, without status migrainosus (principal); R42 Dizziness and giddiness; G47.9 Sleep disorder, unspecified; U09.9 Post COVID-19 condition, unspecified; F09 Unspecified mental disorder due to known physiological condition | CPT/HCPCS: 99212 ==

== ENCOUNTER 2024-12-23 11:29 | Outpatient (AMB) | payer MEDICARE, BC, SELFPAY ==
[2024-12-23 11:31] VITALS: BP 118/70; PULSE 74; O2SAT 93; BMI 39.1
--- NOTE | 2024-12-23 11:31 | A.OFFVIS_ITS ---
Vital Signs 12/23/24 11:31 Height 5 ft 3 in Weight 221 lb BMI 39.1 BP 118/70 Blood Pressure Location Lt brachial Position Sitting Pulse 74 Pulse Source Pulse Oximeter Pulse Oximetry (%) 93 Oxygen Delivery Method Room Air Intake Visit Reasons: 6m follow up Intake Note: Patient presents follow up for headaches and dizziness. Leather Cutter Required: No Accompanied by: Self / Same As Patient Allergies azithromycin (From Zithromax) Allergy (Unknown, Verified 12/23/24 11:34) Unknown fluvastatin Allergy (Unknown, Verified 12/23/24 11:34) mouth sore pravastatin Allergy (Unknown, Verified 12/23/24 11:34) myalgia simvastatin Allergy (Unknown, Verified 12/23/24 11:34) face swelling lisinopril Allergy (Verified 12/23/24 11:34) Rash naproxen (From Naprosyn) Allergy (Verified 12/23/24 11:34) angiodema Penicillins Allergy (Verified 12/23/24 11:34) Rash sulfamethazine Allergy (Verified 12/23/24 11:34) Rash Medication List - Last Reconciled 12/23/24 by SAMIR Elmore acetaminophen ER (Tylenol Arthritis Pain) 650 mg PO Q12H amitriptyline 20 mg (2 x 10 mg) PO BEDTIME 90 days fmfnnubznh-ycxjuamjhlugv-hqxb 50-325-40 mg 1 cap PO Q4H PRN 30 days clopidogrel 75 mg PO DAILY clopidogrel (Plavix) 75 mg PO DAILY escitalopram oxalate 20 mg PO DAILY levothyroxine 75 mcg PO DAILY metformin 500 mg PO BIDWMEAL rosuvastatin 40 mg orally 3 times a week; HPI Comments Details: 69 year old female follow up for migraines, dizziness in setting of long COVID infection in 2019. She denies any significant interval medical changes. She states her migraine and dizziness attacks are intermittent. Having 3-4 mild migraine days per week, and 2-3 more severe migraine attacks per week. For migraine: Migraine is a/w with bifrontal, eye discomfort, photophobia, phonophobia, intermittent dizziness, eyes bother her, no vomiting but nausea. She notes in the past she has had occipital injections by pain management at pain management in [place] which was helpful. She still intermittent bouts of dizziness, which affects her balance prevents her from being able to drive. Her PCP gave her Meclizine, which he has taken few times. She states the meclizine makes her fall asleep and typically wakes up feeling better. The dizziness attacks do affect her balance. She has done vestibular tx, which has helped in the past- Christ[facility] Morales [facility]. Continues to have lapses in short term memory and word finding difficulties. Sleeps is stable- usual sleep cycle 2-3am - 11am. 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 [facility] Medical History Sleep difficulties HTN (hypertension) HLD (hyperlipidemia) Diabetes Hypothyroid Arthritis TIA (transient ischemic attack) Surgical History History of bladder surgery H/O arthroscopy of right knee History of rotator cuff surgery H/O tubal ligation History of carpal tunnel release History of knee replacement Family History Father Interstitial pulmonary fibrosis Mother Hypothyroid Fibrocystic breast Pulmonary embolism Daughter Cervical cancer Maternal Grandmother Dementia Asthma Myocardial infarct Social History Alcohol intake: current Patient Tobacco Use Status: Never used Tobacco Physical Exam Vital Signs: Last Vital Signs Pulse 74 12/23/24 11:31 BP 118/70 12/23/24 11:31 Pulse Ox 93 12/23/24 11:31 Oxygen Delivery Method Room Air 12/23/24 11:31 BMI result Body Mass Index 39.1 Const General: cooperative, comfortable and no acute distress Nutritional Appearance: overweight Orientation/consciousness: patient oriented x3 Limitations: no limitations HEENT Head: Yes normal to inspection Eyes General: appearance normal, both eyes and all related structures Pupils: Equal, round and reactive pupils present and Pupils normal by confrontation Resp Effort & Inspection: normal respiratory effort and able to speak in complete sentences Neuro Other: Mild forward head and shoulder posture General: patient oriented x3 Cranial nerves: Yes Equal, round and reactive pupils present Motor exam (neuro): 5/5 motor strength present throughout Assessment & Plan Assessment & Plan (1) Migraine without aura: Comment: ? vestibular migraine Code(s): G43.009 - Migraine without aura, not intractable, without status migrainosus Category: Medical Qualifiers: Intractability: not intractable Status migrainosus presence: without status migrainosus Qualified Code(s): G43.009 - Migraine without aura, not intractable, without status migrainosus (2) Dizziness: Code(s): R42 - Dizziness and giddiness Category: Medical (3) Cognitive dysfunction: Code(s): F09 - Unspecified mental disorder due to known physiological condition Category: Medical (4) Sleep difficulties: Comment: h/o KASSIDY- did not tolerate PAP tx. Pt worked many night-shift for mx years. Code(s): G47.9 - Sleep disorder, unspecified Category: Medical (5) COVID-19 long hauler: Code(s): U09.9 - Post COVID-19 condition, unspecified Category: Medical Plan For history of episode of acute left eye visual change with history of TIA x2: BP is normal today. Continue Clopidogrel, rosuvastatin. Previous treatments: Propranolol caused lightheadedness. Lisinopril: Patient no longer taking. For overall management: Continue to try to optimize good self-care, including but not limited to maintaining a healthy diet, adequate fluid intake, adequate sleep, and engaging in regular physical activity. Track headaches and dizziness. Continue vestibular PT exercises as needed We will refer patient to [facility]'s Long COVID clinic Future considerations- f/u sleep study, referral to OT for cognitive tx. ? For acute headache treatment: It is important to take acute medications at the first sign of headache/dizziness. May continue Tylenol 650 to a 1000 mg every 4-6 hours as needed Fioricet 1cap q 4 hrs prn tension type headache, Max 2 doses per day. May continue to hold hold previous order for Nurtec ODT 75mg qd d/t cost. Previous acute migraine medication trials: Nurtec- effective but cost-probitive. Acute migraine medication contraindications: All triptans d/t HTN, HLD dx. NSAIDs d/t concomittent Plavix tx. ? For headache prevention medication: Discussed trying a CGRP MaB antagonist- however this still looks to be unaffordable with a co-pay of greater than 500 dollars per dose. If not done yet, follow-up with [facility]- to retrial occipital region injection as that was previously helpful. Start riboflavin 400 mg daily in the morning Start Co Q10 200 mg twice a day, taken with a small amount of higher fat food. Continue Amitriptyline 20mg qhs (at least 8-9 hours before need to arise in the am)- may help dizziness and headache. Previous migraine prevention medication trials: Propranolol caused lightheadedness. Migraine prevention medication contraindications: Would avoid topiramate d/t ri sk for worsening cognitive s/s. Future considerations: Botox therapy, as at times this can be more affordable than CGRP MaBs. And/or Namenda, which could help her post COVID cognitive difficulties and migraine. Applying for [place] Medicaid to see if she would qualify, as if approve this may help her with her medication co-pay costs. ? Pt to follow-up in 6 months or sooner prn. Orders: Referrals Infectious Disease Referral F09 - Unspecified mental disorder due to known physiological condition, G43.009 - Migraine without aura, not intractable, without status migrainosus, R42 - Dizziness and giddiness, U09.9 - Post COVID-19 condition, unspecified Medications: New riboflavin (vitamin B2) 400 mg PO DAILY 90 tabs 3RF 90 days coenzyme Q10 (Co Q-10) 200 mg PO BID 180 caps 1RF 90 days Coding Level of Care Code Est Pt Level 4 (99309) Diagnoses Migraine without aura and without status migrainosus, not intractable G43.009 Intractability: not intractable Status migrainosus presence: without status migrainosus Dizziness R42 Cognitive dysfunction F09 Sleep difficulties G47.9 COVID-19 long hauler U09.9
--- OUTSIDE RECORDS SUMMARY | 2024-12-23 14:44 | XMS_ITS | Clinical Summary ---
Author Organization [facility] [address] [facility] Address [address] [place] [address] Phone Care Team Providers Care Chocolate Molder Name Role Phone Anjel Dye MD Primary Care Provider [phone] Allergies Active Allergy Reactions Criticality Noted Date Comments Fluvastatin 09/15/2024 Lisinopril 09/15/2024 Lisinopril-Hydrochlorothiazide 09/15 Naproxen 09/15/2024 Penicillins 09/15/2024 Pravastatin 09/15/2024 Tretinoin 09/15/2024 Simvastatin 09/15/2024 Sulfamethizole 09/15/2024 Azithromycin 09/15/2024 Medications rosuvastatin (CRESTOR) 20 mg tablet Take 1 tablet (20 mg total) by mouth. Active levothyroxine sodium (TIROSINT) 75 mcg capsule Take 1 capsule (75 mcg total) by mouth. Active metFORMIN (GLUCOPHAGE) 1,000 mg tablet Take 0.5 tablets (500 mg total) by mouth 2 (two) times a day with meals. Active clopidogreL (PLAVIX) 75 mg tablet Take 1 tablet (75 mg total) by mouth. Active psyllium husk (METAMUCIL ORAL) Take by mouth. Activ e acetaminophen (TYLENOL 8 HOUR) 650 mg 8 hr tablet Take 1 tablet (650 mg total) by mouth every 8 (eight) hours if needed for mild pain. Do not crush, chew, or split. Active modafiniL (PROVIGIL) 100 mg tablet Take 1 tablet (100 mg total) by mouth 1 (one) time each day. Max Daily Amount: 100 mg Active amitriptyline (ELAVIL) 25 mg tablet Take by mouth at bedtime. Active escitalopram (Lexapro) 20 mg tablet Take 1 tablet (20 mg total) by mouth 1 (one) time each day. Active polyethylene glycol (Golytely) 236-22.74-6.74 -5.86 gram solution Take 4L by mouth once for one dose. May substitue any PEG. Starting at 2PM the day before your procedure drink 1 8oz glasses at your own pace until you complete half of the gallon. Finish 2nd half of the gallon at 8PM. 4000 mL 5 Active bisacodyL (DULCOLAX) 5 mg EC tablet Take 2 tablets by mouth right before beginning bowel prep. See instructions provided by the office 2 tablet 5 Active minoxidiL (LONITEN) 2.5 mg tablet Take 1 tablet (2.5 mg total) by mouth daily. 4 Active Active Problems Problem Noted Date Diagnosed Date Diabetes mellitus, type 2 (CMS/HCC V24, CMS/HCC V28) 10/15/2024 HTN (hypertension) 10/15/2024 Sleep apnea 10/15/2024 Encounters Date Type Department Care Team Description 10/15/2024 3:45 PM EDT Anesthesia Event [facility] Endoscopy [address] [place] [address] Brianda Galeano MD 10/15/2024 2:32 PM EDT - 10/15/2024 11:59 PM EDT Hospital Encounter [facility] Endoscopy [address] [place] [address] Fatimah Nelson MD Couture, Alison, CRNA History of colon polyps Discharge Disposition: Home or Self Care 10/14/2024 Telephone Gastroenterology - [address] [facility] [address] [facility] [address] [place] [address] Amanda Christian [place] 09/22/2024 Telephone Gastroenterology - [place] [address] [facility] [address] [facility] [address] [place] [address] Jeanne Mast LPN from Last 3 Months Surgical History Surgery Date Site/Laterality Comments TOTAL KNEE ARTHROPLASTY CARPAL TUNNEL RELEASE TUBAL LIGATION ROTATOR CUFF REPAIR BLADDER SUSPENSION Medical History Medical History Date Comments Hypertension Hyperlipidemia Sleep apnea Colon polyp Diabetes mellitus ([facility] V24, [facility] V28) Depression Social History Tobacco Use Types Packs/Day Years Used Date Smoking Tobacco: Never Smokeless Tobacco: Never Tobacco Cessation:Counseling Given: Not Answered Alcohol Use Standard Drinks/Week Comments Yes 0 (1 standard drink = 0.6 oz pur e alcohol) Interpersonal Safety Answer Date Record ed Physical Abuse Unrecognized value 10/15/2024 Verbal Abuse Unrecognized value 10/15/2024 Comments Unknown Sex and Gender Information Value Date Recorded Sex Assigned at Female 10/15/2024 2:27 PM EDT Legal Sex Female 8:33 PM EST Gender Identity Female 10/15/2024 2:27 PM EDT Sexual Orientation Not on file Obstetrics History Last Filed Vital Signs Vital Sign Reading Time Taken Comments Blood Pressure 112/75 10/15/2024 4:25 PM EDT Pulse 76 10/15/2024 4:25 PM EDT Temperature 36.1 C (97 F) 10/15/2024 2:59 PM EDT Respiratory Rate 21 10/15/2024 4:25 PM EDT Oxygen Saturation 95% 10/15/2024 4:25 PM EDT Inhaled Oxygen Concentration - - Weight 99.8 kg (220 lb) 10/15/2024 2:59 PM EDT Height 160 cm (5' 3 ) 10/15/2024 2:59 PM EDT Body Mass Index 38.97 10/15/2024 2:59 PM EDT Plan of Treatment Upcoming Encounters Date Type Department Care Team (Late st Contact Info) Description 04/15/2025 10:40 AM EST Office Visit Gastroenterology - [address] [place] [address] [facility] [address] [place] [id number] Fide Robison NP [address] [place] [address] Health Maintenance Due Date Last Done Comments Breast Cancer Screening 1955 Diabetes: Annual GFR (Glomerular Filtration Rate) 1955 Diabetes: Annual Foot Exam 1966 Diabetes: Annual Retina Eye Exam 1966 DTaP,Tdap,and Td Vaccines (1 - Tdap) 11/14/1975 Zoster Vaccines (1 of 2) 2006 Pneumococcal Vaccine: 50+ Years (2 of 2 - PPSV23, PCV20, or PCV21) 04/04/2022 02/07/2022 Cholesterol Screening (Lipid Panel) 03/22/2023 Hepatitis C Screening 03/22/2023 Medicare Annual Wellness Visit 03/22/2023 Osteoporosis Screening (Bone Density Screening) 03/22/2023 Social Influencers of Health Screening 03/22/2023 Depression Screening 02/26/2024 Diabetes: Annual Urine Albumin-Creatinine Ratio (uACR) 10/15/2024 Diabetes: Blood Sugar Control Test (HGBA1C) 10/15/2024 Hypertension/CHF/CAD Annual BMP Blood Test 10/15/2024 COVID-19 Vaccine ( season) 2024 03/04/2020, 02/12/2020 Influenza Vaccine (#1) 2024 , 02/09/2021, 12/06/2019, Additional history exists Falls Risk Assessment 10/15/2025 10/15/2024 Colorectal Cancer Screening: Colonoscopy 10/15/2029 10/15/2024 RSV Immunization Adult Patients (1 - 1-dose 75+ series) 11/14/2031 HIB Vaccines Aged Out No longer eligi ble based on patient's age to complete this topic HPV Vaccines Aged Out No longer eligi ble based on patient's age to complete this topic Hepatitis A Vaccines Aged Out No long er eligible based on patient's age to complete this topic Hepatitis B Vaccines Aged Out No long er eligible based on patient's age to complete this topic IPV Vaccines Aged Out No longer eligi ble based on patient's age to complete this topic MMR Vaccines Aged Out No longer eligi ble based on patient's age to complete this topic Meningococcal ACWY Vaccine Aged Out N o longer eligible based on patient's age to complete this topic Meningococcal B Vaccine Aged Out No l onger eligible based on patient's age to complete this topic RSV Immunization Patients Under 20 months Aged Out No longer eligible based on patient's age to complete this topic Varicella Vaccines Aged Out No longer eligible based on patient's age to complete this topic Procedures Procedure Name Priority Date/Time Associated Diagnosis Comments COLONOSCOPY Routine 10/15/2024 4:04 PM EDT History of colon polyps from Last 3 Months Results * COLONOSCOPY Anesthesia - MAC; [facility] ENDOSCOPY (10/15/2024 4:04 PM EDT) Anatomical Region Laterality Modality Endoscopy 10/15/2024 3:50 PM EDT Impressions 10/15/2024 4:06 PM EDT - The examined portion of the ileum was normal. - The entire examined colon is normal on direct and retroflexion views. - No specimens collected. Recommendation: - Repeat colonoscopy in 5 years for surveillance. Narrative 10/15/2024 4:06 PM EDT [facility] GI Patient Name: Lissette Goodwin Procedure Date: 10/15/2024 3:50 PM Date of : 1955 Age: 68 Gender: Female Note Status: Finalized Attending MD: Fatimah Nelson MD, Procedure Date No Time: 10/15/2024 Procedure: Colonoscopy Indications: Colon cancer screening in patient at increased risk: Family history of colon polyps in multiple 1st-degree relatives, Surveillance: History of adenomatous polyps, inadequate prep on last exam (<3yr), High risk colon cancer surveillance: Personal history of multiple (3 or more) adenomas, High risk colon cancer surveillance: Personal history of traditional serrated adenoma of the colon Providers: Fatimah Nelson MD Referring MD: Anjel Leyva MD Medicines: Propofol per Anesthesia Complications: No immediate complications. Estimated Blood Loss: Estimated blood loss: none. Procedure: Pre-Anesthesia Assessment: - ASA Grade Assessment: III - A patient with severe systemic disease. After I obtained informed consent, the scope was passed under direct vision. Throughout the procedure, the patient's blood pressure, pulse, and oxygen saturations were monitored continuously.The Olympus Pediatric Colonoscope was introduced through the anus and advanced to the terminal ileum. The colonoscopy was performed without difficulty. The patient tolerated the procedure well. The quality of the bowel preparation was good. Findings: The perianal and digital rectal examinations were normal. The terminal ileum appeared normal. The entire examined colon appeared normal on direct and retroflexion views. Procedure Code(s): --- Professional --- G0105, Colorectal cancer screening; colonoscopy on individual at high risk Diagnosis Code(s): --- Professional --- Z83.71, Family history of colonic polyps Z86.010, Personal history of colonic polyps CPT copyright 2020 [employer]. All rights reserved. The codes documented in this report are preliminary and upon reservationist review may be revised to meet current compliance requirements. Fatimah Nelson MD 10/15/2024 4:06:02 PM This report has been signed electronically.Fatimah Nelson MD Number of Addenda: 0 Note Initiated On: 10/15/2024 3:50 PM Scope In: Scope Out: Endoscopy Department at [facility] - [address] [place] [id number] Procedure Note Fatimah Nelson MD - 10/15/2024 [facility] GI Patient Name: Lissette Goodwin Procedure Date: 10/15/2024 3:50 PM Date of : 1955 Age: 68 Gender: Female Note Status: Finalized Attending MD: Fatimah Nelson MD, Procedure Date No Time: 10/15/2024 Procedure: Colonoscopy Indications: Colon cancer screening in patient at increasedrisk: Family history of colon polyps in [id number] relatives, Surveillance: History of adenomatous polyps, inadequate prep on last exam (<3yr), Highrisk colon cancer surveillance: Personal history of multiple (3 or more) adenomas, High risk coloncancer surveillance: Personal history of traditionalserrated adenoma of the colon Providers: Fatimah Nelson MD Referring MD: Anjel Leyva MD Medicines: Propofol per Anesthesia Complications: No immediate complications. Estimated Blood Loss: Estimated blood loss: none. Procedure: Pre-Anesthesia Assessment: - ASA Grade Assessment: III - A patient with severe systemic disease. After I obtained informed consent, the scope was passed under direct vision. Throughout theprocedure, the patient's blood pressure, pulse, and oxygen saturations were monitored continuously.The Olympus Pediatric Colonoscope was introduced through theanus and advanced to the terminal ileum. The colonoscopy was performed without difficulty. The patient tolerated the procedure well. The quality of thebowel preparation was good. Findings: The perianal and digital rectal examinations were normal. The terminal ileum appeared normal. The entire examined colon appeared normal on direct and retroflexion views. Procedure Code(s): --- Professional --- G0105, Colorectal cancer screening; colonoscopy on individual at high risk Diagnosis Code(s): --- Professional --- Z83.71, Family history of colonic polyps Z86.010, Personal history of colonic polyps CPT copyright 2020 [employer]. All rights reserved. The codes documented in this report are preliminary and upon reservationist reviewmay be revised to meet current compliance requirements. Fatimah Nelson MD 10/15/2024 4:06:02 PM This report has been signed electronically.Fatimah Nelson MD Number of Addenda: 0 Note Initiated On: 10/15/2024 3:50 PM Scope In: Scope Out: Endoscopy Department at [facility] - [address] [place] [id number] IMPRESSION: - The examined portion of the ileum was normal. - The entire examined colon is normal on direct and retroflexion views. - No specimens collected. Recommendation: - Repeat colonoscopy in 5 years for surveillance. Fatimah Nelson MD GI~PROCEDURE ORDERABLES Final Result from Last 3 Months Insurance MEDICARE [facility]) Care Teams Chocolate Molder Relationship Specialty Start Date End Date Anjel Dye MD [address] [place] [id number] PCP - General Internal Medicine 09/15/24
--- OUTSIDE RECORDS SUMMARY | 2024-12-23 14:44 | XMS_ITS | Clinical Summary ---
Author Organization [facility] Address [address] [place] [address] Phone Care Team Providers Care Gift Manager Name Role Phone Anjel Leyva MD Primary Care Provider Allergies Active Allergy Reactions Criticality Noted Date Comments Hydrochlorothiazide Rash Low 09/25/2022 Naproxen Other (See Comments) 06/30/2002 swelling Allergy entered as NAPROSYN Other 09/25/2022 Mushrooms Penicillins Other (See Comments) 06/30/2002 unkown rx to amoxicillin Tretinoin 10/25/2023 Sulfa (Sulfonamide Antibiotics) Other (See Comments) 06/30/2002 rash Medications rosuvastatin (CRESTOR) 40 MG tablet Take 1 tablet by mouth 3 (three) times a week. 3 Active metFORMIN (GLUCOPHAGE) 500 MG tablet TAKE 2 TABLETS BY MOUTH TWO TIMES A DAY Active levothyroxine (SYNTHROID, LEVOTHROID) 75 MCG tablet Take 1 tablet by mouth daily. Active escitalopram oxalate (LEXAPRO) 20 MG tablet Take 1 tablet by mouth daily. Active clopidogrel (PLAVIX) 75 mg tablet 3 Active biotin 1 mg tablet Take 1,000 mcg by mouth daily. Active psyllium husk (METAMUCIL ORAL) Take by mouth. Active MULTIVITAMIN ORAL Take by mouth. Active amitriptyline (ELAVIL) 10 MG tablet Take 10 mg by mouth nightly at bedtime. 3 Active econazole nitrate 1 % cream Apply topically 2 (two) times a day. 3 Active minoxidiL (LONITEN) 2.5 MG tablet Take 2.5 mg by mouth. 4 Active rimegepant (NURTEC ODT) 75 mg tablet Take 75 mg by mouth. 3 Active diclofenac sodium (VOLTAREN) 1 % GelIndications:Andreia antoine osteoarthritis involving multiple joints Apply 2 g topically 4 (four) times a day. 100 g 6 4 Active Active Problems Problem Noted Date Diagnosed Date Primary osteoarthritis involving multiple joints 11/09/2022 Assessment & Plan (04/01/2023 3:10 PM EST): Degenerative osteoarthritis in multiple areas of the spine and peripheral joints. She has erosive changes in the hands. She can continue with Tylenol 650 mg as needed for pain. Will also send in a refill for Voltaren topical gel 3% that she can use on her hands. She does not need labs today. Follow-up in 1 year or sooner if needed. Assessment & Plan (11/09/2022 11:09 AM EDT): Degenerative osteoarthritis in multiple areas with stiffness and gelling but no warm and swollen joints. She can continue with Tylenol 650 mg as needed. She is planning on a left knee replacement in the near future. I gave her 40 mg of intramuscular triamcinolone which should relieve her stiffness for several months. Social History Tobacco Use Types Packs/Day Years Used Date Smoking Tobacco: Never Smokeless Tobacco: Never Tobacco Cessation:Counseling Given: Not Answered Alcohol Use Standard Drinks/Week Comments Not Currently 0 (1 standard drink = 0.6 oz pur e alcohol) Education Answer Date Recorded Are you interested in more education? Not on radha e 09/07/2022 Are you concerned about learning? Not on file 09/07/2022 No 09/07/2022 No 09/07/2022 Digital Access Answer Date Recorded No 09/07/2022 No 09/07/2022 Reliable internet access at home? Not on file 09/07/2022 Device with a working camera? Not on file Intimate Partner Violence Answer Date R ecorded Are you denied basic needs s uch as food, clothing, or medical care? No 10/25/2023 In the past 12 months have y ou been in a relationship with a person who hurts, threatens, or tries to control you? No 10/25/2023 Are you denied basic needs s uch as food, clothing, or medical care? No 10/25/2023 In the past 12 months have y ou been in a relationship with a person who hurts, threatens, or tries to control you? No 10/25/2023 Comments Unknown Sex and Gender Information Value Date Recorded Sex Assigned at Female 10/25/2023 6:14 PM EDT Legal Sex Female 7:33 PM EST Gender Identity Female 10/25/2023 6:14 PM EDT Sexual Orientation Not on file Last Filed Vital Signs Vital Sign Reading Time Taken Comments Blood Pressure 139/73 10/25/2023 6:11 PM EDT Pulse 79 10/25/2023 6:11 PM EDT Temperature 37 C (98.6 F) 10/25/2023 6:11 PM EDT Respiratory Rate 18 10/25/2023 6:11 PM EDT Oxygen Saturation 96% 10/25/2023 6:11 PM EDT Inhaled Oxygen Concentration - - Weight 93.4 kg (206 lb) 10/25/2023 6:11 PM EDT Height 160 cm (5' 3 ) 10/25/2023 6:11 PM EDT Body Mass Index 36.49 10/25/2023 6:11 PM EDT Plan of Treatment Health Maintenance Due Date Last Done Comments Adult Td,Tdap Booster 1956 CREATININE LEVEL 1956 LIPID PANEL 1956 TSH LEVEL 1956 DEPRESSION SCREENING 1968 HEPATITIS C SCREENING 1974 SCREENING FOR DIABETES 11/14/1991 MAMMOGRAM 1996 COLOGUARD 2001 COLONOSCOPY 2001 COLORECTAL CANCER SCREENING 2001 FIT TEST 2001 FOBT 2001 SIGMOIDOSCOPY 2001 VIRTUAL COLONOSCOPY 2001 ZOSTER VACCINES (1 of 2) 2006 OSTEOPOROSIS SCREENING INITIAL (ONE-TIME) 2021 PNEUMOCOCCAL VACCINES (50+ years) (2 of 2 - PPSV23) 02/07/2023 02/07/2022 INFLUENZA VACCINE (#1) 2024 , 02/09/2021, 12/06/2019, Additional history exists COVID-19 VACCINE (3 - 2024- season) 2024 03/04/2020, 02/12/2020 RSV VACCINE (1 - 1-dose 75+ series) 11/14/2031 SMOKING STATUS SCREENING (Once After 26 Yrs) Completed 10/25/2023 HEPATITIS A VACCINES Aged Out No long er eligible based on patient's age to complete this topic HIB VACCINES Aged Out No longer eligi ble based on patient's age to complete this topic MENINGOCOCCAL VACCINES (ACWY) Aged Out No longer eligible based on patient's age to complete this topic MENINGOCOCCAL VACCINES (B) Aged Out N o longer eligible based on patient's age to complete this topic Medical Devices Not on file Insurance MEDICARE PART A & B [facility] MEDICARE SUPPLEMENT MEDICARE PART A & B [facility] MEDICARE SUPPLEMENT [facility] Address: [place] [address] MEDICARE PART A & B [facility] MEDICARE SUPPLEMENT MEDICARE PART A & B [employer] [facility] MEDICARE SUPPLEMENT [facility] Address[facility] [id number] [place] [address] MEDICARE PART A & B [employer] [facility] MEDICARE SUPPLEMENT MEDICARE PART A & B [facility] MEDICARE SUPPLEMENT Care Teams Gift Manager Relationship Specialty Start Date End Date Anjel Leyva MD [address] [place] [address] [address] [place] [address] PCP - General Internal Medicine 09/07/22 Additional Source Comments The information contained in this document represents components of the legal health record. It is not the complete legal health record.[facility]
--- OUTSIDE RECORDS SUMMARY | 2024-12-23 14:44 | XMS_ITS | Data Portability ---
Author Organization [facility] Pain [facility], PAIN OFFICE Address [address] [facility],[address] [address] Care Team Providers Care Die Mounter Name Role Phone COLE LORD Primary Care Provider Assessment Encounter Date Assessment Date Assessment LastModified by Organization Details LastModified Time 07/08/2023 07/08/2023 Lissette Josue is a 67 year old woman with complaints of neck pain radiating into both shoulders and upper back , right is greater than left. She has myofascial pain syndrome in her right upper back. Trigger points were palpated with reproduction of her pain in the right trapezius muscle . She is here for a trial of trigger point injection in right trapezius muscle under ultrasound guidance. The risks and benefits of the procedure were discussed and she wishes to proceed She is on plavix . This cannot be stopped for minor procedures and she understands the bleeding risk and wishes to proceed with the injection. She will follow up in four weeks. [email or web address] Not available 07/08/2023 14:19:07 09/09/2023 09/09/2023 Lissette Josue is a 67 year old woman with complaints of neck pain radiating into both shoulders and upper back , right is greater than left. She has myofascial pain syndrome in her right upper back. Trigger points were palpated with reproduction of her pain in the right trapezius muscle . She is here for a trial of trigger point injection in right trapezius muscle under ultrasound guidance. The risks and benefits of the procedure were discussed and she wishes to proceed She is on plavix . This cannot be stopped for minor procedures and she understands the bleeding risk and wishes to proceed with the injection. She will follow up in four weeks. [email or web address] Not available 09/09/2023 11:18:27 07/16/2024 07/16/2024 Lissette Josue is a 68 year old woman with complaints of neck pain radiating into both shoulders and upper back , right is greater than left. She has myofascial pain syndrome in her right upper back. Trigger points were palpated with reproduction of her pain in the right trapezius muscle . Trial of trigger point injection in right trapezius muscle were discussed with her. The risks and benefits of the procedure were discussed and she wishes to proceed and an appointment has been made for the same. She is on plavix . This cannot be stopped for minor procedures and she understands the bleeding risk and wishes to proceed with the injection. She might benefit from a cervical epidural steroid injection in the future. She wishes to proceed once she stops plavix completely. jina Not available 07/16/2024 10:28:57 07/30/2024 07/30/2024 Lissette Josue is a 68 year old woman with complaints of neck pain radiating into both shoulders and upper back , right is greater than left. She has myofascial pain syndrome in her right upper back. Trigger points were palpated with reproduction of her pain in the right trapezius muscle . She is here for a trial of trigger point injection in right trapezius muscle under ultrasound guidance. The risks and benefits of the procedure were discussed and she wishes to proceed She is on plavix . This cannot be stopped for minor procedures and she understands the bleeding risk and wishes to proceed with the injection. She will follow up next week for left TPI [email or web address] [email or web address] Not available 07/30/2024 11:04:06 08/06/2024 08/06/2024 Lissette Josue is a 68 year old woman with complaints of neck pain radiating into both shoulders and upper back , right is greater than left. She has myofascial pain syndrome in her upper back. Trigger points were palpated with reproduction of her pain in the left trapezius muscle . She is here for a trial of trigger point injection in left trapezius muscle under ultrasound guidance. The risks and benefits of the procedure were discussed and she wishes to proceed She is on plavix . This cannot be stopped for minor procedures and she understands the bleeding risk and wishes to proceed with the injection. She will follow up as needed jina Not available 08/11/2024 16:30:39 Plan of Treatment Reminders Order Date Submit Date Provider Last Modified By Organization Details Last Modified Time Details Appointments None record ed. Lab None record ed. Referral None record ed. Procedures None record ed. Surgeries None record ed. Imaging None record ed. Medication Orders None record ed. Patient TargetsNo targets recorded. Patient Instructions Encounter Date Encounter Id Patient Instructions Last Modified By Organization Details Last Modified Time 07/08/2023 [id number] She was advised against bed rest lasting longer than four days and to continue activities as tolerated. [email or web address] Not available 07/08/2023 14:18:13 09/09/2023 [id number] She was advised against bed rest lasting longer than four days and to continue activities as tolerated. [email or web address] Not available 09/09/2023 11:18:33 07/16/2024 [id number] She was advised against bed rest lasting longer than four days and to continue activities as tolerated. [email or web address] Not available 07/16/2024 10:27:06 07/30/2024 [id number] She was advised against bed rest lasting longer than four days and to continue activities as tolerated. [email or web address] Not available 07/30/2024 11:02:20 08/06/2024 [id number] She was advised against bed rest lasting longer than four days and to continue activities as tolerated. [email or web address] Not available 08/11/2024 16:28:50 Reason for Referral None Reported. Problems Name Problem SNOMED Code Status Onset Date Resolution Date Notes Provider Name and Address Organization Details Recorded Time Spinal stenosis in cervical region 53003900 Heather saez MD [address] , [address], [place], [address], [place] [facility] 9 09:46:14 Cervical spondylosis without myelopathy [id number] Heather saez MD [address] , [address], [facility] [place], [address], [place] [facility] 9 09:46:30 Cervical radiculopathy 34665949 Heather saez MD [address] , [address], [place], [address], [place] [facility] 9 09:46:43 Degeneration of cervical intervertebral disc 96469510 Active Maxi saez MD [address] , [address], [facility] [place], [address], [place] [facility] 9 09:46:58 Muscle pain 46933960 Active Maxi saez MD [address] , [address], [facility] [place], [address], [place] [facility] 9 14:11:21 Problem Notes None recorded. Procedures Surgical History Date Name Laterality Status Provider Name and Address Organization Details Recorded Time 5 Trigger Point Injections under ultrasound guidance completed Maxi Culver MD [address] , [address], [place], [address], [place] [facility] 08/11/2024 16:29:46 5 Trigger Point Injections under ultrasound guidance completed Maxi Culver MD [address] , [address], [place], [address], [place] [facility] 07/30/2024 11:02:27 4 Trigger Point Injections under ultrasound guidance completed Maxi Culver MD [address] , [address], [place], [address], [place] [facility] 09/09/2023 11:18:41 4 Trigger Point Injections under ultrasound guidance completed Maxi Culver MD [address] , [address], [place], [address], [place] [facility] 07/08/2023 14:17:47 2 Trigger Point Injections under ultrasound guidance completed Maxi Culver MD [address] , [address], [place], [address], [place] [facility] 12/27/2021 13:31:20 2 Greater Occipital Nerve Block(s) completed Maxi Culver MD [address] , [address], [place], [address], [place] [facility] 09/14/2021 09:09:15 1 Trigger Point Injections under ultrasound guidance completed Maxi Culver MD [address] , [address], [place], [address], [place] [facility] 05/02/2020 12:05:25 1 Trigger Point Injections under ultrasound guidance completed Maxi Culver MD [address] , [address], [place], [address], [place] [facility] 04/25/2020 11:07:40 9 Trigger Point Injections under ultrasound guidance completed Maxi Culver MD [address] , [address], [place], [address], [place] [facility] 01/01/2019 10:20:59 9 Trigger Point Injections under ultrasound guidance completed Maxi Culver MD [address] , [address], [place], [address], [place] [facility] 12/08/2018 11:18:52 Carpal tunnel release completed Ellepatt Buckner [place] [facility] 10/14/2018 10:56:29 Joint Replacement completed Ellepatt Buckner [place] [facility] 10/14/2018 10:57:45 Other completed Elle Lopezzier [place] [facility] 10/14/2018 10:57:29 Other completed Elle Lopezzier [place] [facility] 10/14/2018 11:04:03 Imaging Results None recorded. Procedure Notes None recorded. Medical Equipment None Reported. Allergies Allergen ID Allergen Name Allergen Category Reaction Reaction Severity Criticality Documentation Date Start Date Code Code System Note Provider Name and Address Organization Details Recorded Time 27339 naproxen medicatio n angioedem a Not available Not available 10/14/2018 7258 RxNorm Elle Lopezzier tyson, [place] [facility] 9 10:45:07 86537 Substance with sulfonami de structure and antibacte rial mechanism of action (substanc e) medicatio n itching rash Not available Not available Not available 10/14/2018 84340 8003 SNOMED lEle Lopezzier tyson, [place] [facility] 9 10:45:24 76160 Product containin g penicilli n (product) medicatio n itching rash Not available Not available Not available 10/14/2018 60529 8001 SNOMED Elle Rebolledotavares mehta [place] [facility] 9 10:45:44 24973 Product containin g 3-hydroxy -3-methyl glutaryl- coenzyme A reductase inhibitor (product) medicatio n myalgias (muscle pain) Not available Not available 10/14/2018 75048 009 SNOMED Elle mehta [place] [facility] 9 10:46:04 10279 Retin-A medicatio n facial swelling Not available Not available 11/27/2018 61601 1 RxNorm Maxi saez MD [address] , [address], [place], [address], [place] [facility] 9 09:21:47 Medications Name Sig Start Date Stop Date Status Note LastModified by Organization Details LastModified Time fluconazole 100 mg tablet 10/14 completed Not Available Not Available Not Available atorvastati n 40 mg tablet 11/27 completed Not Available Not Available Not Available metformin 500 mg tablet TAKE 2 TABLETS BY MOUTH TWICE DAILY active Not Available Not Available No t Available atorvastati n 80 mg tablet TAKE 1 TABLET BY MOUTH EVERY DAY 08/18 completed Not Available Not Available Not Available prednisone 10 mg tablet TAKE 4 TABS X 3 DAYS, THEN 3 TABS X 3 DAYS, THEN 2 TABS X 3 DAYS, THEN 1 TAB X 3 DAYS 08/18 completed Not Available Not Available Not Available nabumetone 750 mg tablet TAKE 1 TABLET BY MOUTH TWO TIMES A DAY 08/18 completed Not Available Not Available Not Available valacyclovi r 1 gram tablet 04/22 completed Not Available Not Available Not Available meloxicam 15 mg tablet TAKE 1 TABLET BY MOUTH EVERY DAY 07/07 completed NSAID . Tx OA and RA Not Available Not Available Not Available prednisone 20 mg tablet TAKE 2 TABLETS BY MOUTH EVERY DAY FOR 5 DAYS 09/08 completed Not Available Not Available Not Available propranolol ER 60 mg capsule,24 hr,extended release TAKE 1 CAPSULE BY MOUTH AT BEDTIME 07/16 completed Not Available Not Available Not Available clopidogrel 75 mg tablet TAKE 1 TABLET BY MOUTH DAILY active Not Available Not Available No t Available minoxidil 2.5 mg tablet TAKE 1/2 TABLET BY MOUTH DAILY active Not Available Not Available No t Available aspirin 81 mg tablet,miah yed release 12/25 completed Not Available Not Available Not Available doxycycline monohydrate 100 mg tablet TAKE 1 TABLET BY MOUTH TWICE A DAY FOR 7 DAYS 09/08 completed Not Available Not Available Not Available levothyroxi ne 75 mcg tablet TAKE 1 TABLET BY MOUTH DAILY active Not Available Not Available No t Available ketorolac 0.5 % eye drops 10/14 completed Not Available Not Available Not Available terbinafine HCl 250 mg tablet TAKE 1 TABLET BY MOUTH EVERY DAY FOR 12 WEEKS 09/08 completed Not Available Not Available Not Available amitriptyli ne 10 mg tablet TAKE 1 TO 2 TABLETS AT BEDTIME active Not Available Not Available No t Available meclizine 25 mg tablet 05/02 completed Not Available Not Available Not Available benzonatate 100 mg capsule SWALLOW WHOLE TAKE 1 CAPSULE 3 TIMES A DAY NEEDED *DO NOT BREAK CHEW, DISSOLVE, CUT, OR CRUSH* 09/08 completed Not Available Not Available Not Available econazole nitrate 1 % topical cream APPLY TO FEET AND IN BETWEEN TOES TWICE DAILY FOR 4 WEEKS. 07/03 completed Not Available Not Available Not Available nystatin 100,000 unit/gram topical cream APPLY 1 APPLICATI ON EXTERNALL Y TWICE A DAY 12/25 completed Not Available Not Available Not Available clotrimazol e-betametha sone 1 %-0.05 % topical cream APPLY 1 APPLICATI ON EXTERNALL Y TWICE A DAY 07/03 completed Not Available Not Available Not Available prednisone 50 mg tablet TAKE 1 TABLET BY MOUTH EVERY DAY FOR 5 DAYS 09/14 completed Not Available Not Available Not Available lisinopril 5 mg tablet TAKE 1 TABLET BY MOUTH EVERY DAY 07/03 completed Not Available Not Available Not Available methylpredn isolone 4 mg tablets in a dose pack TAKE DIRECTED 12/25 completed Not Available Not Available Not Available albuterol sulfate HFA 90 mcg/actuati on aerosol inhaler INHALE 1 TO 2 PUFFS EVERY 4 TO 6 HOURS NEEDED FOR WHEEZE FOR UP TO 30 DAYS 09/08 completed Not Available Not Available Not Available doxycycline hyclate 100 mg tablet day 2of 10 ten day script 11/27 completed Not Available Not Available Not Available mometasone 0.1 % topical cream APPLY TOPICALLY TO AFFECTED AREAS ON LEGS TWICE A DAY FOR TWO WEEKS, BREAK 1 WEEK AND REPEAT NEEDED active Not Available Not Available No t Available escitalopra m 20 mg tablet TAKE 1 TABLET BY MOUTH EVERY DAY active Not Available Not Available No t Available rosuvastati n 40 mg tablet TAKE 1 TABLET BY MOUTH EVERY DAY active Not Available Not Available No t Available diclofenac 1 % topical gel APPLY 4 GRAMS TOPICALLY TO AFFECTED AREA TWO TIMES A DAY NEEDED active Not Available Not Available No t Available Veltassa 8.4 gram oral powder packet DISSOLVE 1 PACKET IN WATER AND TAKE BY MOUTH 3 TIMES A WEEK. SEPERATE OTHER MEDICATIO NS AT LEAST 3 HOURS BEFORE OR 3 HOURS AFTER THIS MEDICATIO N 07/03 completed Not Available Not Available Not Available [facility] mg disintegrat ing tablet DISSOLVE 1 TABLET BY MOUTH EVERY DAY NEEDED FOR MIGRAINE HEADACHE (MAX 1 TABLET/DA Y) active Not Available Not Available No t Available Paxlovid 300 mg (150 mg x 2)-100 mg tablets in a dose pack TAKE 3 TABLETS BY MOUTH TWICE A DAY FOR 5 DAYS 07/03 completed Not Available Not Available Not Available Vitals Date Recorded Oxygen saturation Oxygen saturation in Arterial blood by Pulse oximetry Heart rate Pain severity - 0-10 verbal numeric rating [Score] - Reported Systolic And Diastolic Provider Name and Address Organization Details Last Updated DateTime 4 96 % 96 % 72 /min 8 149/83 mm[Hg] Kayy davis [place] [facility] 4 13:36:12 Date Recorded Heart rate Oxygen saturation Oxygen saturation in Arterial blood by Pulse oximetry Pain severity - 0-10 verbal numeric rating [Score] - Reported Systolic And Diastolic Provider Name and Address Organization Details Last Updated DateTime 5 59 /min 96 % 96 % 8 130/71 mm[Hg] Kayy Warren o [place] [facility] 5 10:03:22 Date Recorded Body height Heart rate Oxygen saturation Oxygen saturation in Arterial blood by Pulse oximetry Body mass index (BMI) Body weight Pain severity - 0-10 verbal numeric rating [Score] - Reported Systolic And Diastolic Provider Name and Address Organization Details Last Updated DateTime 5 160.02 cm 71 /min 95 % 95 % 39 kg/m2 74922.3 2 g 5 143/63 mm[Hg] Kayy Briana o [place] [facility] 5 10:44:08 Date Recorded Body height Oxygen saturation Oxygen saturation in Arterial blood by Pulse oximetry Heart rate Pain severity - 0-10 verbal numeric rating [Score] - Reported Systolic And Diastolic Provider Name and Address Organization Details Last Updated DateTime 5 160.02 cm 95 % 95 % 62 /min 5 157/56 mm[Hg] Kayy Nunezcassie o [facility] 5 10:34:45 Date Recorded Heart rate Oxygen saturation Oxygen saturation in Arterial blood by Pulse oximetry Pain severity - 0-10 verbal numeric rating [Score] - Reported Systolic And Diastolic Provider Name and Address Organization Details Last Updated DateTime 4 68 /min 97 % 97 % 7 149/76 mm[Hg] Maxi saez MD [address] [facility] , [address], [place], [address], [place] [facility] 4 10:33:54 Social History Question Answer Notes LastModified by Organizat [employer] Details LastModified Time Tobacco Smoking Status Never Smoker Not Available [employer] 12/11/2019 03:16:10 Which Illicit Or Recreational Drugs Have You Used? No [id number] Information not available 12/11/2019 Education 2 Year College Information not available 10/14/2018 Live Alone Or With Others? Alone Information not available 10/14/2018 Marital Status Informatio n not available 10/14/2018 Sex: Unknown Functional Status Question Answer Note LastModified by Organizat ion Details LastModified Time What is your level of alcohol consumption? Occasional [id number] Information not available 12/11/2019 Are you currently employed? 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 Family History Relationship Description Onset Age of this Age Resolved Age Notes LastModified by Organization Details LastModified Time Father Chronic lung disease Not available 2018 10:52:14 Mother Dementia [email or web address] Not availabl e 10/14/2018 10:52:30 Medical History Condition Response Diabetes Y Arthritis Y Stroke Hypertension Y Hypothyroidism Y Gynecological HistoryNo gynecological history recorded. Obstetrics History GPAL:G 0 P 0 0 0 0 Past Encounters Encounter ID Performer Location Encounter Start Date Encounter Closed Date Diagnosis/Indication Diagnosis SNOMED-CT Code Diagnosis ICD10 Code Diagnosis IMO Codes Diagnosis Note [id number] Maxi Culver MD PAIN OFFICE [address] [place] [address] 10/14/2018 10:02:20 10/23/2018 11:50:52 Cervical spondylosis without myelopathy 475696391 M47.812 Degenerati on of cervical intervertebral disc 29606353 M50.30 Spinal lee nosis in cervical region 30674760 M48.02 Cervical radiculopathy 92564009 M54.12 Muscle pain 69692144 M79 .10 [id number] Maxi Culver MD PAIN OFFICE [address] [place] [address] 11/27/2018 09:04:12 12/08/2018 11:21:39 Cervical spondylosis without myelopathy 383197318 M47.812 Degenerati on of cervical intervertebral disc 22015277 M50.30 Spinal lee nosis in cervical region 54415387 M48.02 Cervical radiculopathy 30552643 M54.12 Muscle pain 44898891 M79 .10 [id number] Maxi Culver MD PAIN OFFICE [address] [place] [address] 01/01/2019 08:26:48 01/01/2019 10:23:26 Cervical spondylosis without myelopathy 855036402 M47.812 Degenerati on of cervical intervertebral disc 45913865 M50.30 Spinal lee nosis in cervical region 17190945 M48.02 Cervical radiculopathy 37210273 M54.12 Muscle pain 16851304 M79 .10 [id number] Maxi Culver MD PAIN OFFICE [address] [place] [address] 04/22/2020 11:16:41 04/22/2020 11:40:05 Cervical spondylosis without myelopathy 488598912 M47.812 Degenerati on of cervical intervertebral disc 94003841 M50.30 Spinal lee nosis in cervical region 80761059 M48.02 Cervical radiculopathy 21704744 M54.12 Muscle pain 32716556 M79 .10 [id number] Maxi Culver MD PAIN OFFICE [address] [place] [address] 04/25/2020 10:33:54 04/25/2020 15:19:50 Cervical spondylosis without myelopathy 985694028 M47.812 Degenerati on of cervical intervertebral disc 79651280 M50.30 Spinal lee nosis in cervical region 66328218 M48.02 Cervical radiculopathy 15500548 M54.12 Muscle pain 73173093 M79 .10 M79.18 [id number] Maxi Culver MD PAIN OFFICE [address] [place] [address] 05/02/2020 11:25:08 05/02/2020 13:50:58 Cervical spondylosis without myelopathy 006893475 M47.812 Degenerati on of cervical intervertebral disc 11542273 M50.30 Spinal lee nosis in cervical region 12506711 M48.02 Cervical radiculopathy 99813192 M54.12 Muscle pain 06900844 M79 .10 [id number] Maxi Culver MD PAIN OFFICE [address] [place] [address] 08/18/2021 11:27:31 08/21/2021 13:53:54 Cervical spondylosis without myelopathy 524297770 M47.812 Degenerati on of cervical intervertebral disc 34342849 M50.30 Spinal lee nosis in cervical region 06145027 M48.02 Cervical radiculopathy 97522788 M54.12 Muscle pain 05419203 M79 .10 [id number] Maxi Culver MD PAIN OFFICE [address] [place] [address] 09/14/2021 08:27:18 09/14/2021 09:25:21 Cervical spondylosis without myelopathy 730510087 M47.812 Degenerati on of cervical intervertebral disc 23454863 M50.30 Spinal lee nosis in cervical region 61926787 M48.02 Cervical radiculopathy 07253694 M54.12 Muscle pain 92041974 M79 .10 [id number] Maxi Culver MD PAIN OFFICE [address] [place] [address] 12/25/2021 14:22:25 12/27/2021 13:34:12 Cervical spondylosis without myelopathy 178292256 M47.812 Degenerati on of cervical intervertebral disc 74012813 M50.30 Spinal lee nosis in cervical region 33279191 M48.02 Cervical radiculopathy 15118685 M54.12 Muscle pain 64926385 M79 .18 [id number] Maxi Culver MD PAIN OFFICE [address] [place] [address] 07/04/2023 09:28:38 07/04/2023 14:05:24 Cervical spondylosis without myelopathy 265678017 M47.812 Degenerati on of cervical intervertebral disc 79976903 M50.30 Spinal lee nosis in cervical region 70174725 M48.02 Cervical radiculopathy 45323177 M54.12 Muscle pain 81250926 M79 .10 [id number] Maxi Culver MD PAIN OFFICE [address] [place] [address] 07/08/2023 13:27:32 07/08/2023 14:26:04 Cervical spondylosis without myelopathy 180576164 M47.812 Degenerati on of cervical intervertebral disc 51005387 M50.30 Spinal lee nosis in cervical region 79964065 M48.02 Cervical radiculopathy 61906928 M54.12 Muscle pain 99293136 M79 .18 [id number] Maxi Culver MD PAIN OFFICE [address] [place] [address] 09/09/2023 10:29:54 09/09/2023 11:30:24 Cervical spondylosis without myelopathy 969098726 M47.812 Degenerati on of cervical intervertebral disc 27245251 M50.30 Spinal lee nosis in cervical region 38369847 M48.02 Cervical radiculopathy 63944788 M54.12 Muscle pain 19386730 M79 .18 [id number] Maxi Culver MD [facility] [address] [place] [address] 07/16/2024 09:53:10 07/16/2024 16:26:51 Muscle pain 01466368 M79.18 Cervical s pondylosis without myelopathy 815159982 M47.812 Degenerati on of cervical intervertebral disc 86199714 M50.30 Spinal lee nosis in cervical region 76929422 M48.02 Cervical radiculopathy 78492453 M54.12 [id number] Maxi Culver MD [facility] PA[facility] [address] [address] 07/30/2024 10:38:16 07/30/2024 13:24:47 Muscle pain 14870774 M79.18 Cervical s pondylosis without myelopathy 047198621 M47.812 Degenerati on of cervical intervertebral disc 24591760 M50.30 Spinal lee nosis in cervical region 06074291 M48.02 Cervical radiculopathy 75956605 M54.12 [id number] Maxi Culver MD [facility] PA[facility] [address] [address] 08/06/2024 10:31:25 08/11/2024 16:41:33 Muscle pain 98047005 M79.18 Cervical s pondylosis without myelopathy 003563806 M47.812 Degenerati on of cervical intervertebral disc 96936405 M50.30 Spinal lee nosis in cervical region 65211148 M48.02 Cervical radiculopathy 10748798 M54.12 Health Concerns Section Related Observation LastModified by Organization Detai ls LastModified Time None Recorded Concern Status LastModified by Organization Details LastModified Time None Recorded Advance Directives Directive None Recorded Payers Insurance Date Sequence Insurance Name Policy Number Policy [place] Covered Member ID [place] Member ID Guarantor Name 07/16/2024 1 [facility] [id number] Lissette Josue [id number] Lissette Josue 07/27/2024 1 MEDICARE B-[place]: [facility] Lissette Josue [id number] Lissette Josue 07/16/2024 2 [facility] Lissette Josue [id number] Lissette Josue 07/16/2024 1 MEDICARE B-[place]: [facility] Lissette Josue [id number] Lissette Josue 07/16/2024 MEDICARE B-[place]: [facility] Lissette Josue [id number] Lissette Josue 08/11/2024 2 [id number] Lissette Josue [id number] Lissette Josue Notes Date Note Type Note Provider Name and Address Organization Details Recorded Time 07/08/2023 text/html She is here for a right trapezius muscle steroid injection under ultrasound guidance Maxi Culver MD [address] , [address], [place], [address], [facility] - Pain Management 07/08/2023 15:25:36 09/09/2023 text/html She is here for a right trapezius muscle steroid injection under ultrasound guidance Maxi Culver MD [address] , [address], [place], [address], [place] - [place] 09/09/2023 11:41:57 07/16/2024 text/html Lissette Josue is a 68 year old right handed woman with complaints of neck pain radiating into both shoulders with numbness and tingling in her hands, left is greater than right. The pain started in 1989. 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 Pain is becoming greater for the past six months. She describes the pain as a sharp stabbing pain which is at times throbbing and aching in nature. Current pain level is 2-10/10. Pain is aggravated by computer work. Pain is relieved by application of heating pad. Pain interferes with sleep. She has no history of bladder or bowel incontinence.MRI Cervical spine done in 2020 shows multilevel degenerative changes of the cervical spine with mild to moderate central stenosis at C4-5 and C5-6 and multilevel foraminal stenosis greatest on left at C4-5 and on the right at C5-6 . Left sided facet effusion at C6-7 with adjacent marrow edema with marked hypertrophic changes .She had trialed chiropractic treatments , massage and acupuncture with some pain benefits. She had injections in the past with some pain benefit. She use to take NSAIDs with some pain benefit. Now she is on Plavix and can not take NSAIDs. She is taking extra strength tylenol with some pain benefit.She had trigger point injections with good pain benefit in the past. Last injection was 09/09/2023.She is having physical therapy with some pain benefit. She is having long covid and has headaches. Maxi Culver MD [address] , [address], [place], [address], [place] - [facility] 07/17/2024 10:02:13 07/30/2024 text/html She is here for a right trapezius muscle steroid injection under ultrasound guidance Maxi Culver MD [address] , [address], [place], [address], [place] [facility] 07/30/2024 14:58:28 08/06/2024 text/html She is here for a left trapezius muscle steroid injection under ultrasound guidance Maxi Culver MD [address] , [address], [place], [address], [place] [facility] 08/11/2024 16:46:05 OBGyn Episode No OBEpisode recorded.
--- OUTSIDE RECORDS SUMMARY | 2024-12-23 14:44 | XMS_ITS | Encounter Summary ---
Author Organization [facility] Address [address] [place] [address] Phone Care Team Providers Care Adaptive Physical Education Teacher Name Role Phone Anjel Leyva MD Primary Care Provider [phone] Encounter Details Date Type Department Care Team (Late st Contact Info) Description 2022 Documentation Only [facility], [address] [place] [address] Anjel Leyva MD [address] Social History Tobacco Use Types Packs/Day Years Used Date Smoking Tobacco: Never Assessed Comments Unknown Sex and Gender Information Value Date Recorded Sex Assigned at Not on file Legal Sex Female 3:28 PM EDT Gender Identity Not on file Sexual Orientation Not on file documented as of this encounter Plan of Treatment Not on file documented as of this encounter Visit Diagnoses Not on filedocumented in this encounter Care Teams Adaptive Physical Education Teacher Relationship Specialty Start Date End Date Anjel Leyva MD [address] PCP - General Internal Medicine 11/13/22 documented as of this encounter
--- OUTSIDE RECORDS SUMMARY | 2024-12-23 14:44 | XMS_ITS | Clinical Summary ---
Author Organization [facility], Address [address] [place] [address] [place] [address] Phone Care Team Providers Care Mill Worker Name Role Phone Anjel Leyva MD Primary Care Provider [phone] Allergies Active Allergy Reactions Criticality Noted Date [...] Active metFORMIN (GLUCOPHAGE) 500 MG tablet Take 1,500 mg by mouth in the morning and 1,500 mg in the evening. 3 Active mometasone [...] Sign Reading Time Taken Comments Blood Pressure 130/94 08/19/2024 2:21 PM EDT Pulse - - Temperature - - Respiratory Rate - - Oxygen Saturation - - Inhaled Oxygen Concentration - - Weight 95.7 kg (211 lb) 02/13/2023 1:35 PM EST Height - - Body Mass Index - - Plan of Treatment Health Maintenance Due Date Last Done Comments Breast Cancer Screening 1955 Colorectal Cancer Screening: Annual FOBT 2005 Colorectal Cancer Screening: Colonoscopy 2005 Colorectal Cancer Screening: Sigmoidoscopy 2005 Pneumococcal Vaccine: 50+ Ye ars (2 of 2 - PPSV23, PCV20, or PCV21) 04/04/2022 02/07/2022 Diabetes: Hemoglobin A1C 11/26/2022 Diabetes: Ophthalmology Exam 11/26/2022 Diabetes: Pedal Pulse Checked 11/26/2022 Diabetes: Sensory Foot Exam 11/26/2022 Diabetes: Visual Foot Exam 11/26/2022 Influenza Vaccine (#1) 2024 Hepatitis B Vaccine Aged Out No longe r eligible based on patient's age to complete this topic Insurance Medicare [facility] Care Teams Mill Worker Relationship Specialty Start Date End Date Anjel Leyva MD [address] PCP - General Internal Medicine 11/13/22
== END 2024-12-23 12:45 | disposition home or self-care (01) ==
LOC: HO.HSMS 11:29
PROVIDERS: PCP Internal Medicine; Visit Provider Nurse Practitioner Family
DX: G43.009 Migraine without aura, not intractable, without status migrainosus (principal); R42 Dizziness and giddiness; R41.89 Other symptoms and signs involving cognitive functions and awareness; G47.9 Sleep disorder, unspecified; U09.9 Post COVID-19 condition, unspecified
CPT/HCPCS: 99214

== ENCOUNTER → 2024-12-23 11:29 | Outpatient (BNVA) | payer MEDICARE, BC, SELFPAY | PROVIDERS: PCP Internal Medicine; Visit Provider Nurse Practitioner Family | DX: G43.009 Migraine without aura, not intractable, without status migrainosus (principal); R42 Dizziness and giddiness; F09 Unspecified mental disorder due to known physiological condition; G47.9 Sleep disorder, unspecified; Z86.73 Personal history of transient ischemic attack (TIA), and cerebral infarction without residual deficits | CPT/HCPCS: 99212 ==